=== PATIENT | female | born 1955 | race Caucasian/White ===

== ENCOUNTER 2024-08-30 15:50 | Observation (INO) | payer MEDICARE, OTHER, SELFPAY ==
[2024-08-30] VITALS (19 sets, daily range): BP systolic 81–162; BP diastolic 28–65; PULSE 50–58; RESP 16–20; TEMP 36.6–37.2; O2SAT 93–99; BMI 48.6; BMI 49.3
--- NOTE | 2024-08-30 16:00 | ECG_ITS ---
APPROVED REPORT Exam: Resting ECG HR:54 bpm ECG Measurements Heart Rate 54 AXES AR 222 P 31 QRSd 94 QRS 5 QT 444 T 5 QTc 431 Conclusion SINUS BRADYCARDIA WITH FIRST DEGREE AV BLOCK ABNORMAL ECG Electronically signed by : PHIL FUNES, 09/02/2024 07:41:26
--- NOTE | 2024-08-30 16:28 | XR_ITS ---
PROCEDURE INFORMATION: Exam: XR Chest Exam date and time: 08/30/2024 4:27 PM Age: 69 years old Clinical indication: Shortness of breath; Additional info: MARTINA jasso TECHNIQUE: Imaging protocol: Radiologic exam of the chest. Views: 1 view. COMPARISON: No relevant prior studies available. FINDINGS: Lungs: Questionable asymmetric opacities in the right lower lung field. Lungs are otherwise clear. Pleural spaces: Unremarkable. No pleural effusion. No pneumothorax. Heart/Mediastinum: Unremarkable. No cardiomegaly. Bones/joints: Unremarkable. IMPRESSION: Questionable right lower lung field opacities might reflect atelectasis or possibly developing infiltrate. Advise follow-up chest x-ray in 4-6 weeks to ensure resolution or stability or to assess for progression of this finding.
[2024-08-30 16:39] LABS: Basophils # 0.1 K/mm3 (0-0.2); Basophils % 0.5 % (0.1-2.0); Eosinophils # 0.1 K/mm3 (0.0-0.4); Eosinophils % 1.1 % (0.1-12.0); Hematocrit 39.1 % (37.0-47.0); Lymphocytes # 2.4 K/mm3 (0.7-4.5); Lymphocytes % 22.8 % (10-50); Mean Corpuscular HGB Conc 33.3 g/dL (31.8-35.4); Mean Corpuscular Hemoglobin 30.1 pg (27.0-31.2); Mean Corpuscular Volume 90.6 fl (81-99); Monocytes # 0.5 K/mm3 (0.1-1.0); Monocytes % 4.2 % (1.7-9.3); Neutrophils # 7.6 K/mm3 (1.8-7.8); Neutrophils % 71.4 % (37.0-80.0); Platelet Count 310 K/mm3 (142-424); Red Blood Count 4.32 M/mm3 (4.20-5.40); Red Cell Distribution Width 13.3 % (11.5-17.5); White Blood Count 10.7 K/mm3 (4.8-10.8)
[2024-08-30 16:42] LABS: Albumin Level 3.8 g/dl (3.5-5.0); Chloride 107 mmol/L (98-107)
[2024-08-30 16:43] LABS: Potassium 3.9 mmoL/L (3.5-5.1); Sodium 140 mmol/L (136-145)
[2024-08-30 16:45] LABS: Alanine Aminotransferase 17 U/L (12-78); Alkaline Phosphatase 63 U/L (38-126); Aspartate Amino Transferase 26 U/L (14-36); Bilirubin,Total 0.5 mg/dl (0.2-1.3); Blood Urea Nitrogen 21 mg/dl (7-17); Carbon Dioxide 25 mmol/L (22.0-30.0); Creatinine Clearance Estimated 26 mL/min (50-200); Estimated Glomerular Filt Rate 22 ml/min (>60); GFR (African American) 27 ML/MIN (>60)
[2024-08-30 16:46] LABS: Calcium 8.8 mg/dl (8.4-10.2); Glucose 148 mg/dl (74-100); Lipase 280 U/L (23-300); Magnesium 1.9 mg/dl (1.6-2.3)
[2024-08-30 16:47] LABS: INR 0.99 (0.9-1.1); Prothrombin Time 11.1 seconds (10.1-12.5)
[2024-08-30 16:54] LABS: Activated Partial Thrombo Time 24.1 seconds (22.8-30.6)
[2024-08-30 16:55] LABS: NT Pro Brain Natriuretic Pep. 325 pg/mL (0-125)
--- NOTE | 2024-08-30 16:59 | ED_ITS ---
Discharge Plan Disposition Chief Complaint: Weakness Clinical Impressions Clinical Impression: Sepsis Discharge ED Provider: Mahad Argueta General Adult HPI General Chief complaint: Weakness Stated complaint: dizziness Time Seen by Provider: 08/30/24 16:00 Mode of Arrival: EMS Source of Information: Patient and EMS Limitations: No Limitations Description of Symptoms (Recalled from ER Triage Doc. by RN): pt states she [facility] an [facility] and her BP was reading low then it read high. pt reports onher way home she became lightheaded and dizzy. EMS states when they arrived the pt was 78/50 so they gave a 500ml NS bolus in route. On arrival pt is 94/50. She denies pain or SOA. pt states she is still symptomatic and denies LOC. pt states she is feeling weak. pt has a hx of Afib and a watchman device and is currently on plavix. History of Present Illness HPI narrative: Please note that above description of symptoms, in this electronic medical record under categorization of recalled from ER triage doctor by RN are reflective of an initial nursing assessment, however, is not reflective of my full history and physical exam that was personally taken and clarified. Consequentially, this preceding description of symptoms, which may include the patient's categorized chief complaint in the EMR, do not reflect my personal clinical impression, and the ultimate description of history of present illness and patient stated complaints should be deferred to this section of the note. Unless stated otherwise or congruent with this section of the note, additional signs, symptoms, or incongruence should be interpreted as inaccurate with my clinical impression. Related Data Allergies Allergy/AdvReac Type Severity Reaction Status Date / Time No Known Allergies Allergy Verified 08/30/24 18:01 [facility] Disclaimer: The information contained in this section may have been updated after the patient was seen, as this information can be updated by other users. Social History Smoking Status: Never smoker alcohol intake: never current occupational status: retired Travel in the last 8 weeks: None ROS Obtained: Yes All systems reviewed & no additional complaints except as documented Physical Exam General General appearance: alert, in no apparent distress and obese Head Head exam: atraumatic and normocephalic Eye Eye exam: Present normal appearance, PERRL and EOMI Neck Neck exam: Present normal inspection, full ROM and trachea midline Respiratory Respiratory exam: Present normal lung sounds bilaterally; Absent respiratory distress, wheezes, stridor, accessory muscle use or prolonged expiratory phase Cardiovascular Cardiovascular exam: Present regular rate, normal rhythm and other (Pulses equal symmetric in upper and lower extremities) Abdominal Exam Abdominal exam: Present soft; Absent distention, tenderness or pulsatile mass Extremities Exam Extremities exam: Absent edema Neurological Exam Neurological exam: Present alert, oriented X3 and CN II-XII intact; Absent motor sensory deficit Skin Skin exam: Present warm and dry; Absent diaphoresis or erythema Medical Decision Making Medical Records Medical records reviewed: Yes I reviewed the patient's medical records. Screening: Per USPSTF and CDC recommendations, given the prevalence of disease in our region, it is our hospital?s policy to screen for HIV and viral Hepatitis for all patients aged 18 and over and those with ongoing risk factors. Frank Inquiry Pt receiving controlled substance: No Frank was queried for this patient: No Vital Signs: 08/30/24 16:11 08/30/24 16:31 08/30/24 17:07 Temperature 98.1 F Temperature Source Oral Pulse Rate 53 L 57 L Pulse Rate [Left] 57 L Respiratory Rate 16 16 Blood Pressure 89/52 L 92/49 L Blood Pressure [Right Arm] 94/50 L Blood Pressure Mean 59 Blood Pressure Mean [Right Arm] 64 Blood Pressure Source [Right Arm] Automatic Cuff Blood Pressure Position [Right Arm] Sitting 02 Sat by Pulse Oximetry 96 96 99 Oxygen Delivery Method Nasal Cannula Oxygen Flow Rate (LPM) 3 Lab Data Lab Results 08/30/24 15:50: WBC 10.7, RBC 4.32, Hgb 13.0, Hct 39.1, MCV 90.6, MCH 30.1, MCHC 33.3, RDW 13.3, Plt Count 310, MPV 8.0, Neut % (Auto) 71.4, Lymph % (Auto) 22.8, [place] % (Auto) 4.2, Eos % (Auto) 1.1, Baso % (Auto) 0.5, Neut # (Auto) 7.6, Lymph # (Auto) 2.4, [place] # (Auto) 0.5, Eos # (Auto) 0.1, Baso # (Auto) 0.1, PT 11.1, INR 0.99, APTT 24.1, Sodium 140, Potassium 3.9, Chloride 107, Carbon Dioxide 25, BUN 21 H, Creatinine 2.20 H, Glucose 148 H, Calcium 8.8, Magnesium 1.9, Total Bilirubin 0.5, AST 26, ALT 17, Alkaline Phosphatase 63, Troponin I < 0.01, N T-Pro-B Natriuret Pep 325 H, Total Protein 7.0, Albumin 3.8, Lipase 280 08/30/24 18:05: Lactate 1.3 08/30/24 18:06: VBG pH 7.29 L, VBG pCO2 50.8, VBG pO2 35.9, VBG HCO3 24.0, VBG Total CO2 25.6, VBG O2 Saturation 64.8, VBG Base Excess -2.5 L, VBG Lactic Acid 2.0 08/30/24 15:50 08/30/24 15:50 Orders (Tests/Meds): ED MEDICATIONS Generic Name Dose Route Start Last Admin Trade Name Tripq PRN Reason Stop Dose Admin Acetaminophen 650 mg 08/30/24 19:37 Acetaminophen 325mg Tab PO 09/29/24 19:36 Q4HP PRN Fever or Mild Pain (1-3) Sodium Chloride 1,000 mls @ 999 mls/hr 08/30/24 18:57 Sod Chlor 0.9% 1000ml Bag IV 08/30/24 19:57 .Q1H1M ONE Ondansetron HCl 4 mg 08/30/24 19:37 Ondansetron 4mg/2ml Vial IV 09/29/24 19:36 Q8HP PRN Nausea Sodium Chloride 10 ml 08/30/24 19:37 Sodium Chloride 0.9% 10ml Flush Syringe IV 09/29/24 19:36 NEEDED PRN Maintain IV Site Discontinued Medications Generic Name Dose Route Start Last Admin Trade Name Freq PRN Reason Stop Dose Admin Azithromycin 500 mg 08/30/24 17:34 08/30/24 18:10 Azithromycin 250mg Tablet PO 08/30/24 17:35 500 mg ONCE ONE Administration Ceftriaxone Sodium 2 gm/ 100 mls @ 200 mls/hr 08/30/24 17:34 08/30/24 18:10 Sodium Chloride IV 08/30/24 18:03 200 mls/hr ONCE ONE Administration ORDERS Category Date Time Status XR chest portable Stat Exams 08/30/24 16:28 Completed Complete Blood Count Auto Diff Stat Lab 08/30/24 15:50 Completed Comprehensive Metabolic Panel Stat Lab 08/30/24 15:50 Results Lactic Acid Stat Lab 08/30/24 18:05 Completed Lipase Stat Lab 08/30/24 15:50 Results Magnesium Stat Lab 08/30/24 15:50 Results NT Pro Brain Natriuretic Pep. Stat Lab 08/30/24 15:50 Results PT INR [Prothrombin Time INR] Stat Lab 08/30/24 15:50 Completed PTT [Activated Partial Thrombo Time] Stat Lab 08/30/24 15:50 Completed Troponin I Q3H Lab 08/30/24 19:30 Ordered Troponin I Q3H Lab 08/30/24 22:30 Ordered Troponin I Stat Lab 08/30/24 15:50 Results Urinalysis and Microscopic Stat Lab 08/30/24 16:29 Ordered Blood Culture Stat Micro 08/30/24 18:00 Received Venous Blood Gas Stat RT 08/30/24 18:06 Completed Medical Decision Narrative: 69-year-old female history of hypertension, hyperlipidemia, diabetes, CKD 3, A- fib status post Watchman procedure, CAD presenting with multiple complaints. [facility] While she was there, her blood pressure was low and she did not feel well. Was complaining to family friend that she was having intermittent chest pains, lightheadedness, dizziness, nausea as well as bilateral leg pain, which is chronic for her. No new symptoms that she has not had in the past. Not currently having any symptoms other than general malaise. No vomiting, fevers, chills, urinary symptoms. Patient states that she has not had any new changes to her medications. No other relevant history. History was obtained via conversation with patient and friend. On arrival, patient hemodynamically stable, alert, oriented x4, appropriate, GCS 15, moving all extremities spontaneously, pupils equal and reactive to light. Full physical exam performed and significant for morbidly obese appearing female no acute distress. Lungs are clear to auscultation anterior and posteriorly bilaterally. Cardiac exam without murmurs gallops or rubs. No lower extremity edema. Abdomen soft, nontender, nondistended. Differential includes pneumonia, UTI, sepsis, ACS, UT, beta- freda overdose, among others. Patient placed on continuous cardiac monitoring and continuous pulse ox with initial blood pressure 94/50, heart rate 57, saturation 96% on room air, placed on 3 L nasal cannula for comfort. Independent interpretation of EKG shows sinus bradycardia 54 bpm. Prescribed block. No ST or T wave changes concern for acute ischemia. PA 219, QRS 98, QTc 434. Normal axis. Patient was given azithromycin and ceftriaxone and a liter of fluids for symptomatic management and correction of underlying abnormalities. Workup independently interpreted and significant for nonactionable CBC or coags. Chemistry with what appears to be CKD versus KEREN on CKD with creatinine 2.2, BUN 21 with no baseline with which to compare. Lipase negative.. On independent interpretation of imaging, patient appears to have developing infiltrate in right lower lobe consistent with physical exam. See radiology read for full review of final results. Patient given 2 g ceftriaxone and 500 mg azithromycin. On reevaluation, patient resting comfortably. Tissue perfusion reassessment performed within 3 hours, patient mentating, following commands, good capillary refill and hemodynamically stable. Interactive discussion had with hospital medicine, to be admitted to clear blood cultures and rule out sepsis. Given patient presentation, workup, history, this most likely represents beta-blockade in the setting of pneumonia and infection, early sepsis without septic shock. [employer] Operator disclaimer Much of this encounter note is an electronic home demonstration agent spoken language to printed text. Electronic home demonstration agent of the spoken language may permit errors. Although I have reviewed the note, some errors may still exist. Critical Care Critical Care Time Critical Care Time: No
--- NOTE | 2024-08-30 17:31 | ECG_ITS ---
APPROVED REPORT Exam: Resting ECG HR:54 bpm ECG Measurements Heart Rate 54 AXES TX 219 P 29 QRSd 98 QRS -1 QT 448 T 22 QTc 434 Conclusion SINUS BRADYCARDIA WITH FIRST DEGREE AV BLOCK LOW QRS VOLTAGE IN PRECORDIAL LEADS [QRS DEFLECTION < 1.0 mV IN CHEST LEADS] ABNORMAL ECG Electronically signed by : PHIL FUNES, 09/02/2024 07:41:09
[2024-08-30 18:05] LABS: Troponin I < 0.01 ng/ml (0.00-0.034)
[2024-08-30] MEDS: CEFTRIAXONE SODIUM 2 GM in 0.9 % SODIUM CHLORIDE 100 ML IV (18:10)
[2024-08-30] MEDS: AZITHROMYCIN 250MG TABLET 500 MG PO (18:10)
[2024-08-30 18:11] LABS: VBG Base Excess -2.5 mmol/L (-2.4-2.3); VBG Oxygen Saturation 64.8 % (50-70); VBG PH 7.29 mmol/L (7.31-7.41); VBG PO2 35.9 mmol/L (28-40); VBG Total CO2 25.6 mmol/L (23-27)
[2024-08-30 18:13] LABS: VBG PCO2 50.8 mmol/L (35-51)
[2024-08-30 18:34] LABS: Lactic Acid 1.3 mmol/L (0.7-2.1)
--- NOTE | 2024-08-30 19:22 | PC.NURSE ---
ATTEMPTED TO CALL REPORT ON PT BUT THE NURSE IS BUSY. WILL GIVE NURSE TIME TO DEAL WITH CRITICAL PT AND TRY AGAIN SHORTLY
--- NOTE | 2024-08-30 19:34 | PC.NURSE ---
report called to Jacinto Chua RN
--- NOTE | 2024-08-30 19:49 | PC.NURSE ---
PATIENT ARRIVED TO FLOOR VIA STRETCHER FROM ED AT 19:46.
[2024-08-30] MEDS: 0.9 % SODIUM CHLORIDE 1000ML 1,000 ML 999 ML IV (20:29)
--- NOTE | 2024-08-30 20:45 | P.HP_ITS ---
History of Present Illness *Admission Date: 08/30/24 *Reason for visit:: Bradycardia, hypertension, sepsis *History of present illness: Ms. Tellez a [employer] . [facility] to the [facility]. Patient had actually been at the [facility] today had low blood pressure but then 1 was taken that was adequate she was treated and released. Patient noted for the last week she has been feeling weak and sometimes dizzy had gotten worse today, she was seen at the [facility] sent home became worse today her friend then called an ambulance. Patient arrived in the emergency room with systolic below 100 and also bradycardia. Patient noted she usually has hypertension. She came to the emergency room and has been treated., No improvement with the lower blood pressure lower heart rate. Have spoken with the ER physician I do agree that with the patient's sudden change with her weakness that we need to place her upstairs.. I will go ahead and admit her add a cardiology consult. Will look for source of sudden change in her vital signs. Patient is noted at this time to be in calm cooperative and showing no signs of distress. [facility] Disclaimer: The information contained in this section may have been updated after the patient was seen, as this information can be updated by other users. Medical History (Updated 08/31/24 @ 15:48 by Elkin Glover MD) Nocturnal hypoxia Pneumonia Presence of Watchman left atrial appendage closure device Paroxysmal atrial fibrillation Coronary-myocardial bridge Hyperlipidemia COPD (chronic obstructive pulmonary disease) Afib Neuropathy Diabetes HTN (hypertension) Social History (Updated 08/30/24 @ 22:01 by Kaye Chua RN) Smoking Status: Never smoker alcohol intake: never current occupational status: retired Travel in the last 8 weeks: None Review of Systems Constitutional Constitutional: Reports as per HPI and Reports headache(s) (She commonly has headaches also on chronic pain medicine) Eyes Eyes: Reports as per HPI ENT Ears, Nose, Mouth, and Throat: Reports as per HPI and Reports headache(s) (She commonly has headaches also on chronic pain medicine) *Cardiovascular Cardiovascular: Reports as per HPI and Reports dyspnea Comments: Has suddenly low heart rate she says this is unusual for her she denies any chest pain *Respiratory Respiratory: Reports as per HPI and Reports dyspnea Comments: Patient was in the ER said she felt short of breath nasal cannula was placed for comfort O2 saturations were at 95 *Gastrointestinal Gastrointestinal: Reports as per HPI Comments: Patient denies nausea vomiting diarrhea or any other gastrointestinal issues *Genitourinary Genitourinary: Reports as per HPI Comments: Patient denies any dysuria *Musculoskeletal Musculoskeletal: Reports as per HPI Comments: Patient noted that she has no injuries just feeling very weak throughout her whole body Integumentary/Breasts Skin/Breast: Reports as per HPI *Neurologic Neurologic: Reports as per HPI and Reports headache(s) (She commonly has headaches also on chronic pain medicine) Psychiatric Psychiatric: Reports as per HPI Endocrine Endocrine: Reports as per HPI Hematologic/Lymphatic Hematologic/Lymphatic: Reports as per HPI Allergic/Immunologic Allergic/Immunologic: Reports as per HPI Meds Home Medications and Allergies Home Medications ?Medication ?Instructions ?Recorded ?Confirmed ?Type acetaminophen 325 mg tablet 325 - 650 mg PO Q6HP PRN pain 08/30/24 08/31/24 History (mild 1-3) amlodipine 10 mg tablet 10 mg PO DAILY 08/30/24 08/31/24 History aspirin 81 mg tablet,delayed 81 mg PO DAILY 08/30/24 08/30/24 History release diclofenac sodium 3 % topical gel 4 g topical BID 08/30/24 08/31/24 History docusate sodium 100 mg capsule 100 mg PO BID 08/30/24 08/31/24 History empagliflozin 25 mg tablet 12.5 mg PO DAILY 08/30/24 08/31/24 History furosemide 20 mg tablet 20 mg PO DAILYP PRN Edema 08/30/24 08/31/24 History insulin glargine 100 unit/mL (3 35 unit SQ HS 08/30/24 08/31/24 History mL) subcutaneous pen lisinopril 20 mg tablet 20 mg PO DAILY 08/30/24 08/31/24 History metformin 500 mg tablet 500 mg PO BID 08/30/24 08/31/24 History metoprolol succinate 25 mg 25 mg PO DAILY 08/30/24 08/30/24 History tablet,extended release 24 hr naloxone 4 mg/actuation nasal spray 4 mg intranasal Q3MINP PRN overdose 08/30/24 08/31/24 History oxycodone-acetaminophen 5 mg-325 2 tab PO Q6HP PRN Pain (Moderate 08/30/24 08/31/24 History mg tablet 4-6) pantoprazole 40 mg tablet,delayed 40 mg PO DAILY 08/30/24 08/31/24 History release semaglutide 1 mg/dose (4 mg/3 mL) 2.4 mg SQ WEEKLY 08/30/24 08/30/24 History subcutaneous pen injector tizanidine 4 mg tablet 4 mg PO TID 08/30/24 08/31/24 History albuterol sulfate 90 mcg/actuation 2 puff inhalation QIDP PRN 08/31/24 08/31/24 History aerosol inhaler Shortness Of Breath Or Wheezing atorvastatin 40 mg tablet 40 mg PO DAILY 08/31/24 08/31/24 History bupropion HCl 150 mg 24 hr tablet, 450 mg PO AM 08/31/24 08/31/24 History extended release cetirizine 10 mg tablet 10 mg PO DAILY 08/31/24 08/31/24 History cholecalciferol (vitamin D3) 25 25 mcg PO DAILY 08/31/24 08/31/24 History mcg (1,000 unit) capsule (Vitamin D3) ferrous gluconate 324 mg (37.5 mg 324 mg PO Q48H 08/31/24 08/31/24 History iron) tablet fluocinonide 0.05 % topical 1 applic topical BID 08/31/24 08/31/24 History solution fluticasone propionate 50 1 spray intranasal DAILY 08/31/24 08/31/24 History mcg/actuation nasal spray,suspension hydroxyzine HCl 25 mg tablet 25 - 50 mg PO DAILYP PRN Anxiety 08/31/24 08/31/24 History isosorbide mononitrate 30 mg 45 mg PO DAILY 08/31/24 08/31/24 History tablet,extended release 24 hr levothyroxine 37.5 mcg capsule 37.5 mcg PO DAILY 08/31/24 08/31/24 History lidocaine 5 % topical patch 1 patch topical DAILYP PRN pain 08/31/24 08/31/24 History (mild 1-3) mirtazapine 15 mg tablet 15 mg PO HS 08/31/24 08/31/24 History polyethylene glycol 3350 17 17 g PO DAILYP PRN Constipation 08/31/24 08/31/24 History gram/dose oral powder potassium chloride 20 mEq 20 meq PO BID 08/31/24 08/31/24 History tablet,extended release(part/cryst) pregabalin 25 mg capsule 25 mg PO BID 08/31/24 08/31/24 History venlafaxine 150 mg 300 mg PO DAILY 08/31/24 08/31/24 History capsule,extended release 24 hr New Prescriptions to Start Prescriptions: Allergies Allergy/AdvReac Type Severity Reaction Status Date / Time No Known Allergies Allergy Verified 08/30/24 18:01 Exam Data for Last 24 hours Vital signs and Labs for Last 24 Hours: Temp Pulse Resp BP Pulse Ox O2 Del Method O2 Flow Rate 97.8 F 50 L 20 92/49 L 98 Nasal Cannula 4 08/30/24 20:00 08/30/24 20:00 08/30/24 20:00 08/30/24 20:00 08/30/24 20:00 08/30/24 20:00 08/30/24 20:00 Laboratory Results - last 24 hr 08/30/24 15:50: WBC 10.7, RBC 4.32, Hgb 13.0, Hct 39.1, MCV 90.6, MCH 30.1, MCHC 33.3, RDW 13.3, Plt Count 310, MPV 8.0, Neut % (Auto) 71.4, Lymph % (Auto) 22.8, Garland % (Auto) 4.2, Eos % (Auto) 1.1, Baso % (Auto) 0.5, Neut # (Auto) 7.6, Lymph # (Auto) 2.4, Garland # (Auto) 0.5, Eos # (Auto) 0.1, Baso # (Auto) 0.1, PT 11.1, INR 0.99, APTT 24.1, Sodium 140, Potassium 3.9, Chloride 107, Carbon Dioxide 25, BUN 21 H, Creatinine 2.20 H, Estimated Creat Clear 26, Estimated GFR 22 L, Est GFR ( Amer) 27 L, Glucose 148 H, Calcium 8.8, Magnesium 1.9, Total Michael irubin 0.5, AST 26, ALT 17, Alkaline Phosphatase 63, Troponin I < 0.01, NT-Pro-B Natriuret Pep 325 H, Total Protein 7.0, Albumin 3.8, Lipase 280 08/30/24 18:05: Lactate 1.3 08/30/24 18:06: VBG pH 7.29 L, VBG pCO2 50.8, VBG pO2 35.9, VBG HCO3 24.0, VBG Total CO2 25.6, VBG O2 Saturation 64.8, VBG Base Excess -2.5 L, VBG Lactic Acid 2.0 I & O for Last 24 hours: Intake & Output 08/28/24 08/29/24 08/30/24 08/31/24 05:59 05:59 05:59 05:59 Weight 332 lb 14.368 oz Radiology Reports for the Last 24 Hours: The right lower lobe shows possible infiltrate Constitutional Constitutional: mild distress, morbidly obese and cooperative Comments: Patient is very friendly she talks with the ease. She knows where she is shows no sign of distress or any type of confusion *Routine HEENT Exam Head: Present normocephalic and atraumatic Eye: Present EOMI and PERRL ENT: Present mucous membranes moist *Routine Neck Exam Neck: Present supple and full ROM Comments: Lamination of the neck is normal no enlarged thyroid Routine Chest/Breast/Axilla Exam Comments: There was no tenderness to the chest wall back or anterior *Routine Respiratory Exam Respiratory: Present CTA bilaterally, normal respiratory effort, able to speak in complete sentences and symmetric chest movement Comments: Examination of the lungs lady is quite large but can hear good airflow through all lung wynne., *Routine Cardiovascular Exam Cardiovascular: Present RRR, Normal S1, Normal S2 and bradycardia Comments: Was bradycardia sometimes in the 40s but mostly in the 50s sinus rhythm was no ectopy on the monitor while I was watching *Routine Abdominal Exam Abdominal: Present soft and obese Comments: Nontender abdomen *Routine Rectal Exam Rectal:: deferred *Routine Genitalia Exam Genitalia:: deferred *Routine Extremities Exam Extremities: Present full ROM, pulses intact and normal capillary refill Routine Back/Spine/Pelvis Exam Back/Spine: Present full ROM Comments: Patient has chronic pain but she denies any acute pain, exam was negative for any injury *Routine Skin Exam Skin: Present intact, dry, warm and normal turgor *Routine Neurological Exam Neurological: Present alert, oriented X3, CN II-XII intact, normal tone and normal speech Routine Psychiatric Exam Psychiatric: Present normal affect, normal thought process, good insight, good judgment and depressed Comments: No signs of any acute psychiatric problems H&P: Result Impressions 1. Bradycardia hypotension related possibly to sepsis and dehydration, noting mild possible UTI and right lower lobe infiltrate 2. Diabetes mellitus 3. COPD never smoked but was around lots of smokers so secondhand 4. Atrial fibrillation with coronary artery disease 5. Acute kidney injury 5 specific gravity of urine some acidosis question dehydration Imaging and Cardiology Chest x-ray: Status: image reviewed by me Additional comments: Mild right lower lobe infiltrate Assessment and Plan *Assessment and plan (1) Pneumonia: Status: Acute Category: Medical Code(s): J18.9 - Pneumonia, unspecified organism (2) Sepsis: Status: Acute Category: Medical Code(s): A41.9 - Sepsis, unspecified organism (3) KEREN (acute kidney injury): Status: Acute Category: Medical Code(s): N17.9 - Acute kidney failure, unspecified (4) Bradycardia: Status: Acute Category: Medical Code(s): R00.1 - Bradycardia, unspecified (5) Elevated serum creatinine: Status: Acute Category: Medical Code(s): R79.89 - Other specified abnormal findings of blood chemistry (6) Hypotension: Status: Acute Category: Medical Code(s): I95.9 - Hypotension, unspecified (7) Diabetes: Status: Acute Category: Medical Code(s): E11.9 - Type 2 diabetes mellitus without complications (8) COPD (chronic obstructive pulmonary disease): Status: Acute Category: Medical Code(s): J44.9 - Chronic obstructive pulmonary disease, unspecified (9) Dehydration: Status: Acute Category: Medical Code(s): E86.0 - Dehydration Plan Ms. Tellez is a 69-year-old female who presented with complaint of low blood pressure, low heart rate. Found to be hypotensive with bradycardia. Case discussed with ER physician, request admission for further management of pneumonia and hypotension. Medicine agreed to admit. Cardiology and pulmonology consulted to assist with care. Problems addressed as follows: Pneumonia New oxygen requirement COPD Suspected UTI -Chest x-ray reviewed showing right lower lobe infiltrate. Patient has afebrile with normal white count of 10.7. Continue antibiotics with ceftriaxone 1 g daily and azithromycin 500 mg daily for 5 days. -Wean oxygen as tolerated, goal sats greater 90%. - Pulmonology consulted to see patient in the morning. -Cultures pending; Repeat CBC, CMP, magnesium ordered for the morning -Urine culture pending, continue antibiotics as above awaiting speciation and sensitivity KEREN on CKD 3 -BUN 21, creatinine 2.2, caution with nephrotoxins. Repeat labs ordered for the morning. Gentle hydration overnight Bradycardia Myocardial bridge -Cardiology consulted to evaluate patient in the morning. Echo ordered. Will hold home blood pressure and rate controlling medications including lisinopril, Imdur, metoprolol. Reevaluate resumption in the morning. -Continue Jardiance 10 mg daily, Plavix 75 mg daily, aspirin 81 mg daily. Depression: Continue Zoloft 100 mg daily for mood. Diabetes: A1c pending. continue metformin 500 mg twice daily for diabetes; continue insulin sliding scale as needed ACHS with fingersticks. Continue home glargine 35 units nightly Hypothyroid: Continue levothyroxine 75 mcg daily for hypothyroid Full code Lovenox 40mg subcu twice daily Diabetic diet Rounded on patient after nurse practitioner. Personally examined and interviewed patient. Agree with exam findings and care plan as documented.
[2024-08-30] MEDS: CEFTRIAXONE 1 GM 1 GM in 0.9 % SODIUM CHLORIDE 50 ML IV (21:10)
[2024-08-30 21:14] LABS: Troponin I < 0.01 ng/ml (0.00-0.034)
[2024-08-30 21:24] LABS: Albumin/Globulin Ratio 1.2 (1.1-1.8); Anion Gap 11.9 mEq/L (5-15); Globulin 3.2 g/dL (1.3-3.2)
[2024-08-30] MEDS: GLUCAGON 1 MG/ML VIAL 3 MG IV (21:36)
[2024-08-30] MEDS: OXYCODONE 5MG W/APAP 325MG TABLET 1 EACH PO (22:13)
[2024-08-30] MEDS: NOREPINEPHRINE BITARTRATE 8 MG in 0.9 % SODIUM CHLORIDE 250 ML 7.74 MG IV (22:58)
[2024-08-30 23:19] LABS: Microscopic, Urine URINE MICROSCOPIC (MICROSCOPIC)
[2024-08-30 23:24] LABS: Appearance,Urine CLEAR (Clear); Bilirubin,Urine Negative (Negative); Blood, Urine Negative (Negative); Color,Urine YELLOW (Yellow); Glucose,Urine (UA) 3+ (Negative); Ketones,Urine TRACE (Negative); Leukocyte Esterase,Urine TRACE (Negative); Nitrate,Urine Negative (Negative); PH,Urine 5.5 (5.0-8.5); Protein,Urine TRACE (Negative); Specific Gravity, Urine >= 1.030 (1.005-1.030); Urobilinogen,Urine 0.2 EU/dl (0.2)
[2024-08-30 23:36] LABS: Bacteria,Urine 3+ /lpf; RBC,Urine Occasional #/hpf (0-3); Squamous Epithelial Cell,Urine 20-50 #/hpf (0-5); WBC,Urine 20-50 #/hpf (0-3)
[2024-08-31] VITALS (19 sets, daily range): BP systolic 97–128; BP diastolic 32–60; PULSE 50–62; RESP 13–21; TEMP 36.4–36.9; O2SAT 90–99; BMI 49.3
--- NOTE | 2024-08-31 | PC.NURSE ---
Addendum entered by Kaye Chua RN 08/31/24 01:55: patient placed back on 2L NC per Hospitalist, sats remained >90. Original Note: patient weaned to RA.
[2024-08-31 00:07] LABS: Troponin I < 0.01 ng/ml (0.00-0.034)
[2024-08-31 05:31] LABS: POC Glucose,Bedside 108 (70-110)
[2024-08-31 06:07] LABS: POC Glucose,Bedside 114 (70-110)
[2024-08-31] MEDS: IPRATROPIUM/ALBUTEROL 3 ML NEB IH ×2 (06:27→11:23)
[2024-08-31 06:44] LABS: Basophils % 0.4 % (0.1-2.0); Eosinophils # 0.3 K/mm3 (0.0-0.4); Eosinophils % 2.7 % (0.1-12.0); Hematocrit 36.9 % (37.0-47.0); Hemoglobin 12.4 g/dL (12.2-16.2); Lymphocytes # 2.6 K/mm3 (0.7-4.5); Lymphocytes % 24.3 % (10-50); Mean Corpuscular HGB Conc 33.6 g/dL (31.8-35.4); Mean Corpuscular Hemoglobin 30.5 pg (27.0-31.2); Mean Corpuscular Volume 90.6 fl (81-99); Mean Platelet Volume 7.6 fl (7.4-10.4); Monocytes # 0.4 K/mm3 (0.1-1.0); Monocytes % 3.7 % (1.7-9.3); Neutrophils # 7.4 K/mm3 (1.8-7.8); Neutrophils % 68.9 % (37.0-80.0); Platelet Count 257 K/mm3 (142-424); Red Blood Count 4.07 M/mm3 (4.20-5.40); Red Cell Distribution Width 13.3 % (11.5-17.5); White Blood Count 10.7 K/mm3 (4.8-10.8)
[2024-08-31 06:49] LABS: Alanine Aminotransferase 14 U/L (12-78); Albumin Level 3.3 g/dl (3.5-5.0); Albumin/Globulin Ratio 1.1 (1.1-1.8); Alkaline Phosphatase 68 U/L (38-126); Anion Gap 11.5 mEq/L (5-15); Aspartate Amino Transferase 24 U/L (14-36); Bilirubin,Total 0.6 mg/dl (0.2-1.3); Blood Urea Nitrogen 21 mg/dl (7-17); Calcium 8.5 mg/dl (8.4-10.2); Carbon Dioxide 23 mmol/L (22.0-30.0); Chloride 109 mmol/L (98-107); Creatinine Clearance Estimated 39 mL/min (50-200); Estimated Glomerular Filt Rate 38 ml/min (>60); GFR (African American) 45 ML/MIN (>60); Glucose 90 mg/dl (74-100); Magnesium 1.8 mg/dl (1.6-2.3); Potassium 3.5 mmoL/L (3.5-5.1); Sodium 140 mmol/L (136-145); Total Protein,Serum 6.3 g/dl (6.3-8.2)
[2024-08-31 07:16] LABS: Thyroid Stimulating Hormone 1.53 uIU/mL (0.465-4.68)
--- NOTE | 2024-08-31 07:37 | CA_ITS ---
APPROVED REPORT EXAM: Comprehensive 2D, Doppler, and color-flow Echocardiogram Nurse Practitioner Adult: Dinae Emmaneul CRT Ht: 5 ft 9 in Wt: 329lbs BSA: 2.55 BP: 92/49 mmHg Indications: bradycardia, afib, watchman device, on plavix, cardioverted previous M-Mode Dimensions RVDd 3.48 cm (0.9-2.6) LA Diam 4.19 cm (1.9-4.0) LVDd 5.43 cm (3.5-5.7) LVDs 3.35 cm (3.5-5.7) IVSd 1.47 cm (0.6-1.1) PWd 1.12 cm (0.6-1.1) EF (Teich) 68.00% FS 38.30% EDV (Teich) 143.10 mL TAPSE 3.65 (<1.7) ESV (Teich) 45.80 mL LV Diastology E Decel Time 150 (160-240 msec) E/A Ratio 1.24 MED A' 12.30 cm/s LAT A' 7.80 cm/s Aortic Valve KARY Index 1.23 cm2/m2 AoV Peak Rao. 199.0 (50-130 cm/s) AO Peak GR. 15.90 mmHg AO Mean GR. 8.60 (<5 mmHg) AO VTI 42.3 (18-25 cm) KARY (VTI) 3.20 (2.5-4.5 cm2) Mitral Valve MV E Max Rao. 99.0 (40-130 cm/s) MV A Velocity 80.0 (40-130 cm/s) E/A Ratio 1.24 MV PHT 44.0 ms Pulmonary Valve PV Peak Velocity 130.0 (50-150 cm/s) Tricuspid Valve TR P. Velocity 242.00 cm/s RAP Estimate 10.00 mmHg RVSP 33.40 mmHg Left Ventricle The left ventricle is normal size. The left ventricular systolic function is normal. The left ventricular ejection fraction is within the normal range. There is increased LV wall thickness. There is normal LV segmental wall motion. The left ventricular diastolic function is normal. LVEF is 60%. Right Ventricle The right ventricle is normal size. The right ventricular systolic function is normal. Atria The left atrium is mildly dilated. The right atrium size is normal. There is no Doppler evidence of interatrial shunt. Aortic Valve The aortic valve is mildly thickened. There is no hemodynamically significant aortic stenosis. Trace aortic regurgitation. Mitral Valve The mitral valve leaflets are mildly thickened. No evidence of mitral valve stenosis. Mild mitral regurgitation. Tricuspid Valve Tricuspid valve is grossly normal in structure and function. Trace tricuspid regurgitation. RVSP is 20-25 mmHg. Pulmonic Valve The pulmonary valve is normal in structure. Trace pulmonic regurgitation. Great Vessels The aortic root is normal in size. The ascending aorta is normal in size. IVC is normal in size and collapses >50% with inspiration. Pericardium There is no pericardial effusion. Other Information Study Quality: Fair Conclusion Normal biventricular systolic function. Mild LA dilation. Mild MR. Electronically signed by : Tali Tello MD 08/31/2024 12:53:11
[2024-08-31] MEDS: POTASSIUM CHLORIDE 20MEQ TAB 20 MEQ PO ×2 (08:11→21:03)
[2024-08-31] MEDS: ASPIRIN EC 81MG TABLET 81 MG PO (08:11)
[2024-08-31] MEDS: METFORMIN 500MG TABLET 500 MG PO ×2 (08:11→16:30)
[2024-08-31] MEDS: CLOPIDOGREL 75MG TAB 75 MG PO (08:11)
[2024-08-31] MEDS: SERTRALINE 100MG TABLET 100 MG PO (08:12)
[2024-08-31] MEDS: EMPAGLIFLOZIN 10MG TABLET 25 MG PO (08:12)
[2024-08-31] MEDS: AZITHROMYCIN 250MG TABLET 500 MG PO (08:13)
[2024-08-31] MEDS: OXYCODONE 5MG W/APAP 325MG TABLET 2 EACH PO ×3 (08:17→21:02)
[2024-08-31] MEDS: LEVOTHYROXINE 25MCG (0.025MG) TAB 75 MCG PO (08:17)
[2024-08-31 08:59] LABS: Hemoglobin A1C 5.6 % (4.0-6.0)
--- NOTE | 2024-08-31 09:56 | HMH.PHAINT1 ---
Pharmacy Intervention Comments: HOME MEDICATIONS VERIFIED VIA PATIENT INTERVIEW AND [facility]
--- NOTE | 2024-08-31 10:53 | P.CONS_ITS ---
History of Present Illness History of present illness: Ms. Tellez is a 69-year-old female never smoker, significant secondhand smoke exposure carries a diagnosis of asthma COPD overlap syndrome, prolonged hospital admission around September 2023 in [place], diagnosed with pneumonia, bleeding at the same time patient was also diagnosed with left-sided pulmonary embolism has been on anticoagulation since then presented to the clinic of worsening respiratory distress and pulmonary was called for further evaluation and management. She was only using albuterol on as-needed basis at baseline. [facility] Disclaimer: The information contained in this section may have been updated after the patient was seen, as this information can be updated by other users. Medical History (Updated 08/31/24 @ 12:27 by Chata Ramires MD) Nocturnal hypoxia Pneumonia Presence of Watchman left atrial appendage closure device Paroxysmal atrial fibrillation Coronary-myocardial bridge Hyperlipidemia COPD (chronic obstructive pulmonary disease) Afib Neuropathy Diabetes HTN (hypertension) Social History (Updated 08/30/24 @ 22:01 by Kaye Chua RN) Smoking Status: Never smoker alcohol intake: never current occupational status: retired Travel in the last 8 weeks: None Review of Systems Constitutional Constitutional: Reports fatigue, Reports headache(s) (She commonly has headaches also on chronic pain medicine) and Reports snoring Eyes Eyes: Denies eye discharge, Denies dry eyes, Denies irritation and Denies itchy eyes ENT Ears, Nose, Mouth, and Throat: Reports headache(s) (She commonly has headaches also on chronic pain medicine), Denies lip swelling and Denies throat swelling *Cardiovascular Cardiovascular: Reports dyspnea and Reports dyspnea on exertion *Respiratory Respiratory: Denies change in phlegm color, Reports chest congestion, Reports cough, Reports dyspnea, Reports dyspnea on exertion, Denies excessive phlegm production, Reports snoring and Reports wheezing *Gastrointestinal Gastrointestinal: Denies abdominal pain, Denies belching and Denies cramping *Musculoskeletal Musculoskeletal: Reports back pain, Reports myalgias and Reports other (No small joint swelling or Pain) *Neurologic Neurologic: Reports as per HPI and Reports headache(s) (She commonly has headaches also on chronic pain medicine) Psychiatric Psychiatric: Denies homicidal ideation and Denies suicidal ideation Endocrine Endocrine: Reports fatigue and Denies heat intolerance Hematologic/Lymphatic Hematologic/Lymphatic: Denies easy bleeding and Denies lymphadenopathy Allergic/Immunologic Allergic/Immunologic: Denies itchy eyes, Denies lip swelling, Denies throat swelling and Reports wheezing Pulmonology Exam Inpatient Vital signs and Labs for Last 24 Hours: Temp Pulse Resp BP Pulse Ox O2 Del Method O2 Flow Rate 97.6 F 56 L 18 109/51 L 93 L Nasal Cannula 2 08/31/24 08:00 08/31/24 10:00 08/31/24 10:00 08/31/24 10:00 08/31/24 10:00 08/31/24 10:00 08/31/24 10:00 Laboratory Results - last 24 hr 08/30/24 15:50: WBC 10.7, RBC 4.32, Hgb 13.0, Hct 39.1, MCV 90.6, MCH 30.1, MCHC 33.3, RDW 13.3, Plt Count 310, MPV 8.0, Neut % (Auto) 71.4, Lymph % (Auto) 22.8, Gilchrist % (Auto) 4.2, Eos % (Auto) 1.1, Baso % (Auto) 0.5, Neut # (Auto) 7.6, Lymph # (Auto) 2.4, Gilchrist # (Auto) 0.5, Eos # (Auto) 0.1, Baso # (Auto) 0.1, PT 11.1, INR 0.99, APTT 24.1, Sodium 140, Potassium 3.9, Chloride 107, Carbon Dioxide 25, Anion Gap 11.9, BUN 21 H, Creatinine 2.20 H, Estimated Creat Clear 26, Estimated GFR 22 L, Est GFR ( Amer) 27 L, Glucose 148 H, Calcium 8.8, Magnesium 1.9, Total Bilirubin 0.5, AST 26, ALT 17, Alkaline Phosphatase 63, Troponin I < 0.01, NT-Pro-B Natriuret Pep 325 H, Total Protein 7.0, Albumin 3.8, Globulin 3.2, Albumin/Globulin Ratio 1.2, Lipase 280 08/30/24 18:05: Lactate 1.3 08/30/24 18:06: VBG pH 7.29 L, VBG pCO2 50.8, VBG pO2 35.9, VBG HCO3 24.0, VBG Total CO2 25.6, VBG O2 Saturation 64.8, VBG Base Excess -2.5 L, VBG Lactic Acid 2.0 08/30/24 20:04: Troponin I < 0.01 08/30/24 21:37: POC Glucose 114 H 08/30/24 22:07: Urine Color Yellow, Urine Appearance Clear, Urine pH 5.5, Ur Specific Harrington >= 1.030, Urine Protein Trace, Urine Glucose (UA) 3+, Urine Ketones Trace, Urine Blood Negative, Urine Nitrate Negative, Urine Bilirubin Negative, Urine Urobilinogen 0.2, Ur Leukocyte Esterase Trace, Urine RBC Occasional, Urine WBC 20-50, Ur Squamous Epith Cells 20-50, Urine Bacteria 3+ 08/30/24 23:30: Troponin I < 0.01 08/31/24 05:03: POC Glucose 108 08/31/24 05:30: WBC 10.7, RBC 4.07 L, Hgb 12.4, Hct 36.9 L, MCV 90.6, MCH 30.5, MCHC 33.6, RDW 13.3, Plt Count 257, MPV 7.6, Neut % (Auto) 68.9, Lymph % (Auto) 24.3, Gilchrist % (Auto) 3.7, Eos % (Auto) 2.7, Baso % (Auto) 0.4, Neut # (Auto) 7.4, Lymph # (Auto) 2.6, Gilchrist # (Auto) 0.4, Eos # (Auto) 0.3, Baso # (Auto) 0.0, Sodium 140, Potassium 3.5, Chloride 109 H, Carbon Dioxide 23, Anion Gap 11.5, B UN 21 H, Creatinine 1.40 H D, Estimated Creat Clear 39, Estimated GFR 38 L, Est GFR ( Amer) 45 L D, Glucose 90 D, Hemoglobin A1c 5.6, Calcium 8.5, Magnesium 1.8, Total Bilirubin 0.6, AST 24, ALT 14, Alkaline Phosphatase 68, Total Protein 6.3, Albumin 3.3 L D, Globulin 3.0, Albumin/Globulin Ratio 1.1, TSH 1.53 I & O for Labs for Last 24 Hours: Intake & Output 08/28/24 08/29/24 08/30/24 08/31/24 23:59 23:59 23:59 23:59 Intake Total 1294.934 / 1294.934 370 / 370 Output Total 200 / 200 200 / 200 Balance 1094.934 / 1094.934 170 / 170 Weight 332 lb 14.368 oz 332 lb 14.368 oz Constitutional: Present moderate distress Head: Present normocephalic and atraumatic ENT: Present normal exam, normal oropharynx and mucous membranes moist Neck: Present normal inspection and full ROM Respiratory: Present able to speak in complete sentences; Absent prolonged expiratory phase, respiratory distress, wheezes or diminished air movement Cardiac: Present S1/S2, Tachycardia and radial pulses present GI: Present soft and distention; Absent tenderness or guarding Rectal (female): Present deferred (female): Present deferred Skin: Present intact; Absent cyanosis or jaundice Neuro: Present alert, awake and oriented x 3 Extremities: Present normal inspection; Absent clubbing or cyanosis Psychiatric: Present normal affect and cooperative Meds Home Medications and Allergies Home Medications ?Medication ?Instructions ?Recorded ?Confirmed ?Type acetaminophen 325 mg tablet 325 - 650 mg PO Q6HP PRN pain 08/30/24 08/31/24 History (mild 1-3) amlodipine 10 mg tablet 10 mg PO DAILY 08/30/24 08/31/24 History aspirin 81 mg tablet,delayed 81 mg PO DAILY 08/30/24 08/30/24 History release diclofenac sodium 3 % topical gel 4 g topical BID 08/30/24 08/31/24 History docusate sodium 100 mg capsule 100 mg PO BID 08/30/24 08/31/24 History empagliflozin 25 mg tablet 12.5 mg PO DAILY 08/30/24 08/31/24 History furosemide 20 mg tablet 20 mg PO DAILYP PRN Edema 08/30/24 08/31/24 History insulin glargine 100 unit/mL (3 35 unit SQ HS 08/30/24 08/31/24 History mL) subcutaneous pen lisinopril 20 mg tablet 20 mg PO DAILY 08/30/24 08/31/24 History metformin 500 mg tablet 500 mg PO BID 08/30/24 08/31/24 History metoprolol succinate 25 mg 25 mg PO DAILY 08/30/24 08/30/24 History tablet,extended release 24 hr naloxone 4 mg/actuation nasal spray 4 mg intranasal Q3MINP PRN overdose 08/30/24 08/31/24 History oxycodone-acetaminophen 5 mg-325 2 tab PO Q6HP PRN Pain (Moderate 08/30/24 08/31/24 History mg tablet 4-6) pantoprazole 40 mg tablet,delayed 40 mg PO DAILY 08/30/24 08/31/24 History release semaglutide 1 mg/dose (4 mg/3 mL) 2.4 mg SQ WEEKLY 08/30/24 08/30/24 History subcutaneous pen injector tizanidine 4 mg tablet 4 mg PO TID 08/30/24 08/31/24 History albuterol sulfate 90 mcg/actuation 2 puff inhalation QIDP PRN 08/31/24 08/31/24 History aerosol inhaler Shortness Of Breath Or Wheezing atorvastatin 40 mg tablet 40 mg PO DAILY 08/31/24 08/31/24 History bupropion HCl 150 mg 24 hr tablet, 450 mg PO AM 08/31/24 08/31/24 History extended release cetirizine 10 mg tablet 10 mg PO DAILY 08/31/24 08/31/24 History cholecalciferol (vitamin D3) 25 25 mcg PO DAILY 08/31/24 08/31/24 History mcg (1,000 unit) capsule (Vitamin D3) ferrous gluconate 324 mg (37.5 mg 324 mg PO Q48H 08/31/24 08/31/24 History iron) tablet fluocinonide 0.05 % topical 1 applic topical BID 08/31/24 08/31/24 History solution fluticasone propionate 50 1 spray intranasal DAILY 08/31/24 08/31/24 History mcg/actuation nasal spray,suspension hydroxyzine HCl 25 mg tablet 25 - 50 mg PO DAILYP PRN Anxiety 08/31/24 08/31/24 History isosorbide mononitrate 30 mg 45 mg PO DAILY 08/31/24 08/31/24 History tablet,extended release 24 hr levothyroxine 37.5 mcg capsule 37.5 mcg PO DAILY 08/31/24 08/31/24 History lidocaine 5 % topical patch 1 patch topical DAILYP PRN pain 08/31/24 08/31/24 History (mild 1-3) mirtazapine 15 mg tablet 15 mg PO HS 08/31/24 08/31/24 History polyethylene glycol 3350 17 17 g PO DAILYP PRN Constipation 08/31/24 08/31/24 History gram/dose oral powder potassium chloride 20 mEq 20 meq PO BID 08/31/24 08/31/24 History tablet,extended release(part/cryst) pregabalin 25 mg capsule 25 mg PO BID 08/31/24 08/31/24 History venlafaxine 150 mg 300 mg PO DAILY 08/31/24 08/31/24 History capsule,extended release 24 hr New Prescriptions to Start Prescriptions: Allergies Allergy/AdvReac Type Severity Reaction Status Date / Time No Known Allergies Allergy Verified 08/30/24 18:01 Results Laboratory Findings 08/31/24 05:30 08/31/24 05:30 PT/INR, D-dimer PT 11.1 seconds (10.1-12.5) 08/30/24 15:50 INR 0.99 (0.9-1.1) 08/30/24 15:50 Abnormal lab findings: Abnormal Labs 08/30/24 08/30/24 08/30/24 15:50 18:06 21:37 RBC Hct VBG pH 7.29 L VBG Base Excess -2.5 L Chloride BUN 21 H Creatinine 2.20 H Estimated GFR 22 L Est GFR ( Amer) 27 L Glucose 148 H POC Glucose 114 H NT-Pro-B Natriuret Pep 325 H Albumin 08/31/24 05:30 RBC 4.07 L Hct 36.9 L VBG pH VBG Base Excess Chloride 109 H BUN 21 H Creatinine 1.40 H D Estimated GFR 38 L Est GFR ( Amer) 45 L D Glucose POC Glucose NT-Pro-B Natriuret Pep Albumin 3.3 L D Assessment and Plan *Assessment and plan (1) Pneumonia: Status: Acute Category: Medical Code(s): J18.9 - Pneumonia, unspecified organism (2) Nocturnal hypoxia: Status: Acute Category: Medical Code(s): G47.34 - Idiopathic sleep related nonobstructive alveolar hypoventilation Plan Ms. Tellez is a 69-year-old female never smoker, significant secondhand smoke exposure carries a diagnosis of asthma COPD overlap syndrome, prolonged hospital admission around September 2023 in [place], diagnosed with pneumonia, bleeding at the same time patient was also diagnosed with left-sided pulmonary embolism has been on anticoagulation since then presented to the clinic of worsening respiratory distress and pulmonary was called for further evaluation and management. She was only using albuterol on as-needed basis at baseline. Chest x-ray right lower lobe infiltrate. Vascular congestion. Afebrile. No evidence of leukocytosis. Hemodynamically unstable. On ceftriaxone and azithromycin. On 2 L saturating 96 to 98%. Weaned to room air. No significant wheezing noted on auscultation. Plan: Continue ceftriaxone azithromycin pending sputum culture results, antibiotics can be weaned to cefdinir upon discharge. Continue oxygen supplementation as needed to maintain O2 saturation goal of 90 to 95% during the daytime. Continue 2 L nasal oxygen supplementation nocturnally likely from her sleep apnea. DuoNebs 4 times daily as needed
[2024-08-31 11:16] LABS: POC Glucose,Bedside 106 (70-110)
--- NOTE | 2024-08-31 12:12 | P.CONCA_ITS ---
History of Present Illness History of Present Illness Consult date: 08/31/24 Requesting physician: Elkin Glover Consult reason: hypotension Chief complaint: Hypotension and bradycardia History of present illness: This is a 69-year-old white female who presented to the emergency department with hypotension and bradycardia. The patient states that [facility] yesterday when she was found to have low blood pressure. She states they rechecked her blood pressure and it was higher so they sent her home. She states that after she got home she continued to feel more weak and dizzy and just did not feel well. She states that she has been feeling like that intermittently for the last few weeks but yesterday it did get severe. She states that she was very tearful and she felt like she was hurting all over her body and just profoundly fatigued. She decided to come to the emergency department. The patient was found to be hypotensive and bradycardic in the emergency department and was referred for admission. All of her blood pressure medications have been put on hold this morning and her systolic blood pressure is around 105 this morning. She states that she is feeling a little bit better today. She states that she has had chest pain intermittently through the night last night. It was a sharp sensation in the left side of her chest. It did not radiate. No associated symptoms. The patient states that approximately a year ago she was diagnosed with a myocardial bridge while at the hospital in [facility]. She states that she has shortness of breath with exertion. This does improve with rest. She states that she is chronically edematous. She denies any fever, chills, nausea, vomiting, diarrhea, PND orthopnea. [facility] Disclaimer: The information contained in this section may have been updated after the patient was seen, as this information can be updated by other users. Medical History (Updated 08/31/24 @ 12:19 by Diane Thompson APRN) Presence of Watchman left atrial appendage closure device Paroxysmal atrial fibrillation Coronary-myocardial bridge Hyperlipidemia COPD (chronic obstructive pulmonary disease) Afib Neuropathy Diabetes HTN (hypertension) Social History (Updated 08/30/24 @ 22:01 by Kaye Chua RN) Smoking Status: Never smoker alcohol intake: never current occupational status: retired Travel in the last 8 weeks: None Review of Systems Review of Systems Review of systems:: pertinent systems reviewed and negative unless documented below Constitutional Constitutional: Reports system reviewed and no additional complaints, except as documented, Reports fatigue, Reports headache(s) (She commonly has headaches also on chronic pain medicine) and Reports lethargy Eyes Eyes: Reports system reviewed and no additional complaints, except as documented ENT Ears, Nose, Mouth, and Throat: Reports system reviewed and no additional complaints, except as documented and Reports headache(s) (She commonly has headaches also on chronic pain medicine) *Cardiovascular Cardiovascular: Reports system reviewed and no additional complaints, except as documented, Reports chest pain, Reports chest pain at rest, Reports chest pain with activity, Reports dyspnea, Reports dyspnea on exertion, Reports edema and Reports slow heart rate *Respiratory Respiratory: Reports system reviewed and no additional complaints, except as documented, Reports dyspnea and Reports dyspnea on exertion *Gastrointestinal Gastrointestinal: Reports system reviewed and no additional complaints, except as documented *Genitourinary Genitourinary: Reports system reviewed and no additional complaints, except as documented *Musculoskeletal Musculoskeletal: Reports system reviewed and no additional complaints, except as documented Integumentary/Breasts Skin/Breast: Reports system reviewed and no additional complaints, except as documented *Neurologic Neurologic: Reports system reviewed and no additional complaints, except as documented, Reports as per HPI and Reports headache(s) (She commonly has headaches also on chronic pain medicine) Psychiatric Psychiatric: Reports system reviewed and no additional complaints, except as documented Endocrine Endocrine: Reports system reviewed and no additional complaints, except as documented and Reports fatigue Hematologic/Lymphatic Hematologic/Lymphatic: Reports system reviewed and no additional complaints, except as documented Allergic/Immunologic Allergic/Immunologic: Reports system reviewed and no additional complaints, except as documented Exam Data for Last 24 hours Vital signs and Labs for Last 24 Hours: Temp Pulse Resp BP Pulse Ox O2 Del Method O2 Flow Rate 97.6 F 58 L 18 104/58 L 95 Nasal Cannula 2 08/31/24 08:00 08/31/24 11:24 08/31/24 11:00 08/31/24 11:00 08/31/24 11:24 08/31/24 11:24 08/31/24 11:24 Laboratory Results - last 24 hr 08/30/24 15:50: WBC 10.7, RBC 4.32, Hgb 13.0, Hct 39.1, MCV 90.6, MCH 30.1, MCHC 33.3, RDW 13.3, Plt Count 310, MPV 8.0, Neut % (Auto) 71.4, Lymph % (Auto) 22.8, Jones % (Auto) 4.2, Eos % (Auto) 1.1, Baso % (Auto) 0.5, Neut # (Auto) 7.6, Lymph # (Auto) 2.4, Jones # (Auto) 0.5, Eos # (Auto) 0.1, Baso # (Auto) 0.1, PT 11.1, INR 0.99, APTT 24.1, Sodium 140, Potassium 3.9, Chloride 107, Carbon Dioxide 25, Anion Gap 11.9, BUN 21 H, Creatinine 2.20 H, Estimated Creat Clear 26, Estimated GFR 22 L, Est GFR ( Amer) 27 L, Glucose 148 H, Calcium 8.8, Magnesium 1.9, Total Bilirubin 0.5, AST 26, ALT 17, Alkaline Phosphatase 63, Troponin I < 0.01, NT-Pro-B Natriuret Pep 325 H, Total Protein 7.0, Albumin 3.8, Globulin 3.2, Albumin/Globulin Ratio 1.2, Lipase 280 08/30/24 18:05: Lactate 1.3 08/30/24 18:06: VBG pH 7.29 L, VBG pCO2 50.8, VBG pO2 35.9, VBG HCO3 24.0, VBG Total CO2 25.6, VBG O2 Saturation 64.8, VBG Base Excess -2.5 L, VBG Lactic Acid 2.0 08/30/24 20:04: Troponin I < 0.01 08/30/24 21:37: POC Glucose 114 H 08/30/24 22:07: Urine Color Yellow, Urine Appearance Clear, Urine pH 5.5, Ur Specific [place] >= 1.030, Urine Protein Trace, Urine Glucose (UA) 3+, Urine Ketones Trace, Urine Blood Negative, Urine Nitrate Negative, Urine Bilirubin Negative, Urine Urobilinogen 0.2, Ur Leukocyte Esterase Trace, Urine RBC Occasional, Urine WBC 20-50, Ur Squamous Epith Cells 20-50, Urine Bacteria 3+ 08/30/24 23:30: Troponin I < 0.01 08/31/24 05:03: POC Glucose 108 08/31/24 05:30: WBC 10.7, RBC 4.07 L, Hgb 12.4, Hct 36.9 L, MCV 90.6, MCH 30.5, MCHC 33.6, RDW 13.3, Plt Count 257, MPV 7.6, Neut % (Auto) 68.9, Lymph % (Auto) 24.3, Jones % (Auto) 3.7, Eos % (Auto) 2.7, Baso % (Auto) 0.4, Neut # (Auto) 7.4, Lymph # (Auto) 2.6, Jones # (Auto) 0.4, Eos # (Auto) 0.3, Baso # (Auto) 0.0, Sodium 140, Potassium 3.5, Chloride 109 H, Carbon Dioxide 23, Anion Gap 11.5, BUN 21 H, Creatinine 1.40 H D, Estimated Creat Clear 39, Estimated GFR 38 L, Est GFR ( Amer) 45 L D, Glucose 90 D, Hemoglobin A1c 5.6, Calcium 8.5, Magnesium 1.8, Total Bilirubin 0.6, AST 24, ALT 14, Alkaline Phosphatase 68, Total Protein 6.3, Albumin 3.3 L D, Globulin 3.0, Albumin/Globulin Ratio 1.1, TSH 1.53 08/31/24 11:01: POC Glucose 106 I & O for Last 24 hours: Intake & Output 08/28/24 08/29/24 08/30/24 08/31/24 23:59 23:59 23:59 23:59 Intake Total 1294.934 / 1294.934 470 / 470 Output Total 200 / 200 200 / 200 Balance 1094.934 / 1094.934 270 / 270 Weight 332 lb 14.368 oz 332 lb 14.368 oz Constitutional Constitutional: no acute distress and morbidly obese *Routine HEENT Exam Head: Present normocephalic and atraumatic ENT: Present mucous membranes moist *Routine Neck Exam Neck: Present supple, full ROM and normal carotid upstroke; Absent JVD, carotid bruit or lymphadenopathy *Routine Respiratory Exam Respiratory: Present CTA bilaterally, normal respiratory effort, able to speak in complete sentences and symmetric chest movement *Routine Cardiovascular Exam Cardiovascular: Present RRR, Normal S1 and Normal S2; Absent murmur or gallop *Routine Abdominal Exam Abdominal: Present soft and normoactive bowel sounds; Absent tenderness, distended or organomegaly *Routine Extremities Exam Extremities: Present edema, full ROM, pulses intact and normal capillary refill; Absent cyanosis or clubbing *Routine Skin Exam Skin: Present intact and warm; Absent erythema *Routine Neurological Exam Neurological: Present alert, oriented X3 and CN II-XII intact; Absent sensory deficit or motor deficit Routine Psychiatric Exam Psychiatric: Present normal affect Meds Home Medications and Allergies Home Medications ?Medication ?Instructions ?Recorded ?Confirmed ?Type acetaminophen 325 mg tablet 325 - 650 mg PO Q6HP PRN pain 08/30/24 08/31/24 History (mild 1-3) amlodipine 10 mg tablet 10 mg PO DAILY 08/30/24 08/31/24 History aspirin 81 mg tablet,delayed 81 mg PO DAILY 08/30/24 08/30/24 History release diclofenac sodium 3 % topical gel 4 g topical BID 08/30/24 08/31/24 History docusate sodium 100 mg capsule 100 mg PO BID 08/30/24 08/31/24 History empagliflozin 25 mg tablet 12.5 mg PO DAILY 08/30/24 08/31/24 History furosemide 20 mg tablet 20 mg PO DAILYP PRN Edema 08/30/24 08/31/24 History insulin glargine 100 unit/mL (3 35 unit SQ HS 08/30/24 08/31/24 History mL) subcutaneous pen lisinopril 20 mg tablet 20 mg PO DAILY 08/30/24 08/31/24 History metformin 500 mg tablet 500 mg PO BID 08/30/24 08/31/24 History metoprolol succinate 25 mg 25 mg PO DAILY 08/30/24 08/30/24 History tablet,extended release 24 hr naloxone 4 mg/actuation nasal spray 4 mg intranasal Q3MINP PRN overdose 08/30/24 08/31/24 History oxycodone-acetaminophen 5 mg-325 2 tab PO Q6HP PRN Pain (Moderate 08/30/24 08/31/24 History mg tablet 4-6) pantoprazole 40 mg tablet,delayed 40 mg PO DAILY 08/30/24 08/31/24 History release semaglutide 1 mg/dose (4 mg/3 mL) 2.4 mg SQ WEEKLY 08/30/24 08/30/24 History subcutaneous pen injector tizanidine 4 mg tablet 4 mg PO TID 08/30/24 08/31/24 History albuterol sulfate 90 mcg/actuation 2 puff inhalation QIDP PRN 08/31/24 08/31/24 History aerosol inhaler Shortness Of Breath Or Wheezing atorvastatin 40 mg tablet 40 mg PO DAILY 08/31/24 08/31/24 History bupropion HCl 150 mg 24 hr tablet, 450 mg PO AM 08/31/24 08/31/24 History extended release cetirizine 10 mg tablet 10 mg PO DAILY 08/31/24 08/31/24 History cholecalciferol (vitamin D3) 25 25 mcg PO DAILY 08/31/24 08/31/24 History mcg (1,000 unit) capsule (Vitamin D3) ferrous gluconate 324 mg (37.5 mg 324 mg PO Q48H 08/31/24 08/31/24 History iron) tablet fluocinonide 0.05 % topical 1 applic topical BID 08/31/24 08/31/24 History solution fluticasone propionate 50 1 spray intranasal DAILY 08/31/24 08/31/24 History mcg/actuation nasal spray,suspension hydroxyzine HCl 25 mg tablet 25 - 50 mg PO DAILYP PRN Anxiety 08/31/24 08/31/24 History isosorbide mononitrate 30 mg 45 mg PO DAILY 08/31/24 08/31/24 History tablet,extended release 24 hr levothyroxine 37.5 mcg capsule 37.5 mcg PO DAILY 08/31/24 08/31/24 History lidocaine 5 % topical patch 1 patch topical DAILYP PRN pain 08/31/24 08/31/24 History (mild 1-3) mirtazapine 15 mg tablet 15 mg PO HS 08/31/24 08/31/24 History polyethylene glycol 3350 17 17 g PO DAILYP PRN Constipation 08/31/24 08/31/24 History gram/dose oral powder potassium chloride 20 mEq 20 meq PO BID 08/31/24 08/31/24 History tablet,extended release(part/cryst) pregabalin 25 mg capsule 25 mg PO BID 08/31/24 08/31/24 History venlafaxine 150 mg 300 mg PO DAILY 08/31/24 08/31/24 History capsule,extended release 24 hr New Prescriptions to Start Prescriptions: Allergies Allergy/AdvReac Type Severity Reaction Status Date / Time No Known Allergies Allergy Verified 08/30/24 18:01 Assessment and Plan *Assessment and plan (1) Hypotension: Status: Acute Qualifiers: Hypotension type: hypotension due to drug Qualified Code(s): I95.2 - Hypotension due to drugs Category: Medical Code(s): I95.9 - Hypotension, unspecified (2) Bradycardia: Status: Acute Category: Medical Code(s): R00.1 - Bradycardia, unspecified (3) Dehydration: Status: Acute Category: Medical Code(s): E86.0 - Dehydration (4) Elevated serum creatinine: Status: Acute Category: Medical Code(s): R79.89 - Other specified abnormal findings of blood chemistry (5) Diabetes: Status: Acute Qualifiers: Diabetes mellitus type: type 2 Diabetes mellitus middle or intermediate school principal insulin use: with middle or intermediate school principal use Diabetes mellitus complication status: without complication Qualified Code(s): E11.9 - Type 2 diabetes mellitus without complications; Z79.4 - long term care administrator (current) use of insulin Category: Medical Code(s): E11.9 - Type 2 diabetes mellitus without complications (6) COPD (chronic obstructive pulmonary disease): Status: Acute Qualifiers: COPD type: unspecified COPD Qualified Code(s): J44.9 - Chronic obstructive pulmonary disease, unspecified Category: Medical Code(s): J44.9 - Chronic obstructive pulmonary disease, unspecified (7) Sepsis: Status: Acute Qualifiers: Sepsis type: sepsis due to unspecified organism Sepsis acute organ dysfunction status: unspecified Qualified Code(s): A41.9 - Sepsis, unspecified organism Category: Medical Code(s): A41.9 - Sepsis, unspecified organism (8) Coronary-myocardial bridge: Status: Acute Category: Medical Code(s): Q24.5 - Malformation of coronary vessels (9) Paroxysmal atrial fibrillation: Status: Acute Category: Medical Code(s): I48.0 - Paroxysmal atrial fibrillation (10) Presence of Watchman left atrial appendage closure device: Status: Acute Category: Medical Code(s): Z95.818 - Presence of other cardiac implants and grafts Plan Plan: 1. The patient presented to the emergency department with complaints of hypotension and bradycardia. The patient was found to have a systolic blood pressure less than 100 and her heart rate in the 50s. All of her antihypertensive medications have been stopped as well as her metoprolol. Her blood pressure and heart rate have improved. Will continue to hold all of her antihypertensives at this time. 2. The patient has been having intermittent chest pain. She reports having history of a myocardial bridge. She was taking isosorbide mononitrate for this. This has been stopped due to hypotension. Will start Ranexa 500 mg p.o. twice daily. 3. Preliminary echocardiogram shows a normal ejection fraction which is more on the hyperdynamic side consistent with her dehydration. The patient would likely benefit from more IV fluids. Will leave this up to the hospitalist. 4. The patient reports having a history of paroxysmal atrial fibrillation and is status post watchman's device placement. She remains in sinus rhythm at this time. Her beta-freda has currently been stopped due to hypotension and bradycardia. Will continue to hold that at this time. 5. Her blood pressure has improved today. 6. Her LDL goal is less than 100. Will get a lipid panel in the morning. 7. The patient does have a UTI. She is getting IV antibiotics. Will defer to the hospitalist. 8. The patient also has a right lower lobe pneumonia. Will defer this to the hospitalist and pulmonology. 9. The patient does have an KEREN. She does have some dehydration. As mentioned above she also has a slightly hyperdynamic EF and would benefit from IV fluids. 10. Further recommendations will be made pending the patient's response to treatment. Thank you for the opportunity to help participate in the care of this patient. All recommendations and orders are per Dr. Tello.
[2024-08-31] MEDS: RANOLAZINE 500MG ER TABLET 500 MG PO ×2 (12:35→21:03)
--- NOTE | 2024-08-31 15:34 | EXP.ACUTE.PN ---
Subjective *Date: 08/31/24 *Time: 15:45 Interval history: Showing some improvement this morning. On 2 L on morning rounds. Will attempt to wean. Cardiology and pulmonology evaluating today. Heart rate showing improvement with improvement in blood pressure. Not on norepinephrine this morning. Medical Exam Vital signs and Labs for Last 24 Hours: Vital Signs Temp Pulse Pulse Resp BP BP Pulse Ox 08/31/24 15:00 08/31/24 14:00 58 L 19 120/32 L 93 L 08/31/24 13:00 08/31/24 12:00 60 08/31/24 12:00 58 L 20 114/42 L 90 L 08/31/24 11:24 58 L 08/31/24 11:24 55 L 08/31/24 11:24 95 08/31/24 11:00 57 L 18 104/58 L 95 08/31/24 11:00 08/31/24 10:00 56 L 18 109/51 L 93 L 08/31/24 09:00 08/31/24 09:00 59 L 18 112/52 L 94 L 08/31/24 08:00 57 L 93 L 08/31/24 08:00 60 20 97/45 L 93 L 08/31/24 08:00 60 08/31/24 08:00 97.6 F 08/31/24 06:28 59 L 08/31/24 06:28 62 08/31/24 06:28 95 08/31/24 06:18 08/31/24 06:00 53 L 18 102/54 L 96 08/31/24 05:00 55 L 18 105/40 L 95 08/31/24 04:39 08/31/24 04:00 08/31/24 04:00 50 L 08/31/24 04:00 98.4 F 52 L 21 102/47 L 95 08/31/24 03:00 08/31/24 03:00 55 L 13 128/59 L 96 08/31/24 02:00 56 L 16 119/60 95 08/31/24 01:00 55 L 18 126/53 L 91 L 08/31/24 01:00 08/31/24 00:00 60 08/31/24 00:00 97.9 F 58 L 18 112/54 L 91 L 08/31/24 00:00 08/30/24 23:41 133/64 08/30/24 23:23 154/65 H 08/30/24 23:19 162/63 H 08/30/24 23:09 87/40 L 08/30/24 23:05 58 L 18 81/36 L 93 L 08/30/24 23:00 08/30/24 22:58 87/34 L 08/30/24 22:42 90/41 L 08/30/24 22:38 88/28 L 08/30/24 22:00 52 L 18 133/64 98 08/30/24 21:45 114/61 08/30/24 21:30 108/60 L 08/30/24 21:15 90/45 L 08/30/24 21:00 08/30/24 20:50 88/45 L 08/30/24 20:26 50 L 08/30/24 20:00 08/30/24 20:00 97.8 F 50 L 20 92/49 L 98 08/30/24 19:51 99.0 F 51 L 16 92/49 L 08/30/24 17:07 57 L 92/49 L 99 08/30/24 16:31 53 L 16 89/52 L 96 08/30/24 16:11 98.1 F 57 L 16 94/50 L 96 O2 Del Method O2 Flow Rate 08/31/24 15:00 Nasal Cannula 1 08/31/24 14:00 Nasal Cannula 1 08/31/24 13:00 Nasal Cannula 1 08/31/24 12:00 08/31/24 12:00 Room Air 08/31/24 11:24 08/31/24 11:24 08/31/24 11:24 Nasal Cannula 2 08/31/24 11:00 Nasal Cannula 2 08/31/24 11:00 Nasal Cannula 2 08/31/24 10:00 Nasal Cannula 2 08/31/24 09:00 Room Air 08/31/24 09:00 Nasal Cannula 2 08/31/24 08:00 Nasal Cannula 2 08/31/24 08:00 Nasal Cannula 2 08/31/24 08:00 08/31/24 08:00 08/31/24 06:28 08/31/24 06:28 08/31/24 06:28 Nasal Cannula 2 08/31/24 06:18 Nasal Cannula 2 08/31/24 06:00 Nasal Cannula 2 08/31/24 05:00 Nasal Cannula 2 08/31/24 04:39 Nasal Cannula 2 08/31/24 04:00 Nasal Cannula 2 08/31/24 04:00 08/31/24 04:00 Nasal Cannula 2 08/31/24 03:00 Nasal Cannula 2 08/31/24 03:00 Nasal Cannula 2 08/31/24 02:00 Nasal Cannula 2 08/31/24 01:00 Room Air 08/31/24 01:00 Room Air 08/31/24 00:00 08/31/24 00:00 Room Air 08/31/24 00:00 Room Air 08/30/24 23:41 08/30/24 23:23 08/30/24 23:19 08/30/24 23:09 08/30/24 23:05 Nasal Cannula 1 08/30/24 23:00 Nasal Cannula 1 08/30/24 22:58 08/30/24 22:42 08/30/24 22:38 08/30/24 22:00 Nasal Cannula 2 08/30/24 21:45 08/30/24 21:30 08/30/24 21:15 08/30/24 21:00 Nasal Cannula 2 08/30/24 20:50 08/30/24 20:26 08/30/24 20:00 Nasal Cannula 4 08/30/24 20:00 Nasal Cannula 4 08/30/24 19:51 Room Air 08/30/24 17:07 08/30/24 16:31 08/30/24 16:11 Nasal Cannula 3 Intake and Output 08/30/24 08/31/24 08/31/24 23:59 07:59 15:59 Intake Total 1294.934 / 1294.934 770 / 770 Output Total 200 / 200 0 / 200 200 / 200 Balance 1094.934 / 1094.934 0 / 570 570 / 570 Intake: Intake, Oral Amount 240 / 240 720 / 720 Intake, Total IV Amount 1054.934 / 1054.934 50 / 50 0.9 % Sodium Chloride 1000ML 1, 999 / 999 000 ml @ 999 mls/hr IV .Q1H1M [facility] Rx#:[id number] Ceftriaxone 1 gm 1 gm In 0.9 % 50 / 50 50 / 50 Sodium Chloride 50 ml @ 100 mls /hr IV Q24H [facility] Rx#:[id number] Output: Output, Urine Amount 200 / 200 0 / 200 200 / 200 Other: Number of Unmeasured Voids 0 1 2 Weight 151 kg 151 kg Patient Weight 08/31/24 23:59 Weight 151 kg Laboratory Results - last 24 hr 08/30/24 15:50: WBC 10.7, RBC 4.32, Hgb 13.0, Hct 39.1, MCV 90.6, MCH 30.1, MCHC 33.3, RDW 13.3, Plt Count 310, MPV 8.0, Neut % (Auto) 71.4, Lymph % (Auto) 22.8, [place] % (Auto) 4.2, Eos % (Auto) 1.1, Baso % (Auto) 0.5, Neut # (Auto) 7.6, Lymph # (Auto) 2.4, [place] # (Auto) 0.5, Eos # (Auto) 0.1, Baso # (Auto) 0.1, PT 11.1, INR 0.99, APTT 24.1, Sodium 140, Potassium 3.9, Chloride 107, Carbon Dioxide 25, Anion Gap 11.9, BUN 21 H, Creatinine 2.20 H, Estimated Creat Clear 26, Estimated GFR 22 L, Est GFR ( Amer) 27 L, Glucose 148 H, Calcium 8.8, Magnesium 1.9, Total Bilirubin 0.5, AST 26, ALT 17, Alkaline Phosphatase 63, Troponin I < 0.01, NT-Pro-B Natriuret Pep 325 H, Total Protein 7.0, Albumin 3.8, Globulin 3.2, Albumin/Globulin Ratio 1.2, Lipase 280 08/30/24 18:05: Lactate 1.3 08/30/24 18:06: VBG pH 7.29 L, VBG pCO2 50.8, VBG pO2 35.9, VBG HCO3 24.0, VBG Total CO2 25.6, VBG O2 Saturation 64.8, VBG Base Excess -2.5 L, VBG Lactic Acid 2.0 08/30/24 20:04: Troponin I < 0.01 08/30/24 21:37: POC Glucose 114 H 08/30/24 22:07: Urine Color Yellow, Urine Appearance Clear, Urine pH 5.5, Ur Specific [place] >= 1.030, Urine Protein Trace, Urine Glucose (UA) 3+, Urine Ketones Trace, Urine Blood Negative, Urine Nitrate Negative, Urine Bilirubin Negative, Urine Urobilinogen 0.2, Ur Leukocyte Esterase Trace, Urine RBC Occasional, Urine WBC 20-50, Ur Squamous Epith Cells 20-50, Urine Bacteria 3+ 08/30/24 23:30: Troponin I < 0.01 08/31/24 05:03: POC Glucose 108 08/31/24 05:30: WBC 10.7, RBC 4.07 L, Hgb 12.4, Hct 36.9 L, MCV 90.6, MCH 30.5, MCHC 33.6, RDW 13.3, Plt Count 257, MPV 7.6, Neut % (Auto) 68.9, Lymph % (Auto) 24.3, [place] % (Auto) 3.7, Eos % (Auto) 2.7, Baso % (Auto) 0.4, Neut # (Auto) 7.4, Lymph # (Auto) 2.6, [place] # (Auto) 0.4, Eos # (Auto) 0.3, Baso # (Auto) 0.0, Sodium 140, Potassium 3.5, Chloride 109 H, Carbon Dioxide 23, Anion Gap 11.5, BUN 21 H, Creatinine 1.40 H D, Estimated Creat Clear 39, Estimated GFR 38 L, Est GFR ( Amer) 45 L D, Glucose 90 D, Hemoglobin A1c 5.6, Calcium 8.5, Magnesium 1.8, Total Bilirubin 0.6, AST 24, ALT 14, Alkaline Phosphatase 68, Total Protein 6.3, Albumin 3.3 L D, Globulin 3.0, Albumin/Globulin Ratio 1.1, TSH 1.53 08/31/24 11:01: POC Glucose 106 I & O for Labs for Last 24 Hours: Intake & Output 08/28/24 08/29/24 08/30/24 08/31/24 23:59 23:59 23:59 23:59 Intake Total 1294.934 / 1294.934 770 / 770 Output Total 200 / 200 200 / 200 Balance 1094.934 / 1094.934 570 / 570 Weight 151 kg 151 kg Constitutional: Present no acute distress, morbidly obese, chronically ill appearing and cooperative Head: Present atraumatic and normocephalic ENT: Present normal exam Respiratory: Present prolonged expiratory phase and distant breath sounds; Absent respiratory distress, rhonchi, wheezes or crackles Cardiac: Present Regular Rhythm and Bradycardia GI: Present soft and normal bowel sounds; Absent distention or tenderness Extremities: Present normal inspection and full ROM Skin: Present intact; Absent erythema Neuro: Present Grossly Intact, alert, awake, oriented x 3 and moves all extremities Assessment and Plan *Assessment and plan (1) Pneumonia: Status: Acute Category: Medical Code(s): J18.9 - Pneumonia, unspecified organism (2) Paroxysmal atrial fibrillation: Status: Acute Category: Medical Code(s): I48.0 - Paroxysmal atrial fibrillation (3) COPD (chronic obstructive pulmonary disease): Status: Acute Qualifiers: COPD type: unspecified COPD Qualified Code(s): J44.9 - Chronic obstructive pulmonary disease, unspecified Category: Medical Code(s): J44.9 - Chronic obstructive pulmonary disease, unspecified (4) Hypotension: Status: Acute Qualifiers: Hypotension type: hypotension due to drug Qualified Code(s): I95.2 - Hypotension due to drugs Category: Medical Code(s): I95.9 - Hypotension, unspecified (5) Bradycardia: Status: Acute Category: Medical Code(s): R00.1 - Bradycardia, unspecified (6) Dehydration: Status: Acute Category: Medical Code(s): E86.0 - Dehydration (7) Coronary-myocardial bridge: Status: Acute Category: Medical Code(s): Q24.5 - Malformation of coronary vessels (8) Presence of Watchman left atrial appendage closure device: Status: Acute Category: Medical Code(s): Z95.818 - Presence of other cardiac implants and grafts (9) Diabetes: Status: Acute Qualifiers: Diabetes mellitus complication status: without complication Diabetes mellitus bed bug exterminator insulin use: with bed bug exterminator use Diabetes mellitus type: type 2 Qualified Code(s): E11.9 - Type 2 diabetes mellitus without complications; Z79.4 - residential (current) use of insulin Category: Medical Code(s): E11.9 - Type 2 diabetes mellitus without complications (10) Nocturnal hypoxia: Status: Acute Category: Medical Code(s): G47.34 - Idiopathic sleep related nonobstructive alveolar hypoventilation Plan Ms. Tellez is a 69-year-old female who presented with complaint of low blood pressure, low heart rate. Found to be hypotensive with bradycardia. Case discussed with ER physician, request admission for further management of pneumonia and hypotension. Medicine agreed to admit. Cardiology and pulmonology consulted to assist with care. Problems addressed as follows: Pneumonia New oxygen requirement COPD Suspected UTI -Chest x-ray reviewed showing right lower lobe infiltrate. Patient has afebrile with normal white count of 10.7. Continue antibiotics with ceftriaxone 1 g daily and azithromycin 500 mg daily for 5 days. -Wean oxygen as tolerated, goal sats greater 90%. -Discussed case with pulmonology, recommend continuing antibiotics IV while inpatient, weaned to cefdinir at discharge for total of 5 days. DuoNebs 4 times a day as needed. -Cultures pending -Repeat CBC, CMP, magnesium ordered for the morning -Urine culture pending, continue antibiotics as above awaiting speciation and sensitivity CKD 3 -BUN 21, creatinine 1.4, appears to be patient's baseline. -Electrolytes within appropriate range with potassium of 3.5, magnesium 1.8, replace per protocol Bradycardia Myocardial bridge -Discussed case with cardiology, reviewed patient's echocardiogram, preliminarily shows normal EF with hyperdynamic ventricle consistent with dehydration. Will administer additional liter of fluids gently over the course of the next 8 hours. -Hold metoprolol. -Initiate Ranexa 500 mg twice daily -Due to watchman's device placement, no indication for anticoagulation. Appears to be in sinus rhythm at this time. Monitor on telemetry. -Hold lisinopril and Imdur -Continue Jardiance 10 mg daily, Plavix 75 mg daily, aspirin 81 mg daily. Depression: Continue Zoloft 100 mg daily for mood. Diabetes: Well-controlled with A1c of 5.6, continue metformin 5 mg twice daily for diabetes; continue insulin sliding scale as needed ACHS with fingersticks. Continue home glargine 35 units nightly Hypothyroid: Continue levothyroxine 75 mcg daily for hypothyroid Full code Lovenox 40mg subcu twice daily Diabetic diet
[2024-08-31] MEDS: LACTATED RINGERS 1000ML 1,000 ML 125 ML IV (15:40)
[2024-08-31 16:13] LABS: HIV (1&2) Antibody Rapid NONREACTIVE (NONREACTIVE)
[2024-08-31 16:39] LABS: POC Glucose,Bedside 95 (70-110)
--- NOTE | 2024-08-31 16:39 | PC.NURSE ---
pt currently resting supine in bed. LR going at 250 currently- to be turned to 125 once 500ml has infused per Dr. Glover. pt was weaned to RA, but dropped to 88, so she was placed on 1L NC. tolerating well with sats >90%. SCDS in place. pt has been tao (55-65) this shift, and hypotenstive. pt has complained of pain twice and was treated per dec. fsbs this shift did not require coverage. pt seen by cardiology and pulmonology this shift. 1+ BLE edema. bed alarm for pt safety. no complaints at this time. bed in low and locked position. call light in reach.
[2024-08-31 20:11] LABS: POC Glucose,Bedside 112 (70-110)
[2024-08-31] MEDS: INSULIN GLARGINE 100 UNITS/ML 3ML FLEXPEN 35 UNIT SUBCUT (21:02)
[2024-08-31] MEDS: ATORVASTATIN 40MG TABLET 40 MG PO (21:03)
[2024-08-31] MEDS: CEFTRIAXONE 1 GM 1 GM in 0.9 % SODIUM CHLORIDE 50 ML IV (21:03)
[2024-08-31] MEDS: ENOXAPARIN 40MG/0.4ML SYRINGE 40 MG SUBCUT (21:03)
[2024-09-01] VITALS: BP 115/46; PULSE 50; PULSE 61; RESP 18; TEMP 36.9; O2SAT 95
[2024-09-01 04:00] VITALS: BP 110/58; PULSE 50; PULSE 56; RESP 16; TEMP 36.7; O2SAT 96; BMI 49.3
[2024-09-01] MEDS: LEVOTHYROXINE 75MCG (0.075MG) TAB 75 MCG PO (06:00)
[2024-09-01 06:02] LABS: POC Glucose,Bedside 87 (70-110)
[2024-09-01 06:30] LABS: Alanine Aminotransferase 15 U/L (12-78); Albumin Level 3.3 g/dl (3.5-5.0); Albumin/Globulin Ratio 1.2 (1.1-1.8); Alkaline Phosphatase 63 U/L (38-126); Anion Gap 8.8 mEq/L (5-15); Aspartate Amino Transferase 22 U/L (14-36); Bilirubin,Total 0.5 mg/dl (0.2-1.3); Blood Urea Nitrogen 18 mg/dl (7-17); Calcium 8.9 mg/dl (8.4-10.2); Carbon Dioxide 26 mmol/L (22.0-30.0); Chloride 109 mmol/L (98-107); Creatinine Clearance Estimated 46 mL/min (50-200); Estimated Glomerular Filt Rate 45 ml/min (>60); GFR (African American) 54 ML/MIN (>60); Globulin 2.8 g/dL (1.3-3.2); Glucose 80 mg/dl (74-100); Magnesium 1.7 mg/dl (1.6-2.3); Potassium 3.8 mmoL/L (3.5-5.1); Sodium 140 mmol/L (136-145); Total Protein,Serum 6.1 g/dl (6.3-8.2)
[2024-09-01 06:57] LABS: Basophils % 0.7 % (0.1-2.0); Eosinophils # 0.3 K/mm3 (0.0-0.4); Eosinophils % 4.9 % (0.1-12.0); Hematocrit 36.8 % (37.0-47.0); Hemoglobin 12.5 g/dL (12.2-16.2); Lymphocytes # 2.1 K/mm3 (0.7-4.5); Lymphocytes % 32.7 % (10-50); Mean Corpuscular Hemoglobin 30.4 pg (27.0-31.2); Mean Corpuscular Volume 89.6 fl (81-99); Mean Platelet Volume 7.8 fl (7.4-10.4); Monocytes # 0.3 K/mm3 (0.1-1.0); Monocytes % 4.8 % (1.7-9.3); Neutrophils # 3.7 K/mm3 (1.8-7.8); Platelet Count 238 K/mm3 (142-424); Red Cell Distribution Width 13.4 % (11.5-17.5); White Blood Count 6.5 K/mm3 (4.8-10.8)
[2024-09-01 08:00] VITALS: BP 110/57; PULSE 53; PULSE 60; RESP 15; TEMP 36.4; O2SAT 97
[2024-09-01] MEDS: METFORMIN 500MG TABLET 500 MG PO (08:15)
[2024-09-01] MEDS: CLOPIDOGREL 75MG TAB 75 MG PO (08:37)
[2024-09-01] MEDS: ASPIRIN EC 81MG TABLET 81 MG PO (08:37)
[2024-09-01] MEDS: AZITHROMYCIN 250MG TABLET 500 MG PO (08:37)
[2024-09-01] MEDS: ENOXAPARIN 40MG/0.4ML SYRINGE 40 MG SUBCUT (08:38)
[2024-09-01] MEDS: EMPAGLIFLOZIN 10MG TABLET 25 MG PO (08:38)
[2024-09-01] MEDS: POTASSIUM CHLORIDE 20MEQ TAB 20 MEQ PO (08:38)
[2024-09-01] MEDS: RANOLAZINE 500MG ER TABLET 500 MG PO (08:38)
[2024-09-01] MEDS: VENLAFAXINE XR 75MG CAPSULE 300 MG PO (08:38)
[2024-09-01] MEDS: OXYCODONE 5MG W/APAP 325MG TABLET 2 EACH PO (08:40)
[2024-09-01] MEDS: PREGABALIN 25MG CAPSULE 25 MG PO (08:40)
[2024-09-01 09:23] LABS: Chol/HDL Ratio 3.2 (1-3.5); Cholesterol 121 mg/dl (140-200); HDL Cholesterol 38 mg/dl (40-60); Triglycerides 87 mg/dl (30-150); VLDL Cholesterol 17 mg/dL (0-40)
--- NOTE | 2024-09-01 09:30 | P.DS_ITS ---
General Admission date:: 08/30/24 Discharge date: 09/01/24 HPI HPI HPI: Ms. Tellez a [employer] . Normally goes to the [facility]. Patient had actually been at the [facility] today had low blood pressure but then 1 was taken that was adequate she was treated and released. Patient noted for the last week she has been feeling weak and sometimes dizzy had gotten worse today, she was seen at the [facility] sent home became worse today her friend then called an ambulance. Patient arrived in the emergency room with systolic below 100 and also bradycardia. Patient noted she usually has hypertension. She came to the emergency room and has been treated., No improvement with the lower blood pressure lower heart rate. Have spoken with the ER physician I do agree that with the patient's sudden change with her weakness that we need to place her upstairs.. I will go ahead and admit her add a cardiology consult. Will look for source of sudden change in her vital signs. Patient is noted at this time to be in calm cooperative and showing no signs of distress. Hospital Course Hospital Course Hospital Course: Ms. Tellez is a 69-year-old female who presented with complaint of low blood pressure, low heart rate. Found to be hypotensive with bradycardia. Case discussed with ER physician, request admission for further management of pneumonia and hypotension. Medicine agreed to admit. Cardiology and pulmonology consulted to assist with care. Patient's blood pressure meds and rate controlling meds were held during admission. Treated for Pna +/- UTI. Overall did well. Able to wean oxygen to 1 L by day of discharge. Has oxygen at home which she wears intermittently. Blood pressure and heart rate improved. Stable to discharge home with further management as an outpatient. Order placed for home health at discharge due to patient's medical needs and concern for mild debility. Problems addressed as follows: Pneumonia New oxygen requirement COPD Suspected UTI -Chest x-ray reviewed showing right lower lobe infiltrate. Patient was afebrile with normal white count of 10.7. Initiated on antibiotics with ceftriaxone and azithromycin. Pulmonology consulted to assist with care. Transition to cefdinir to complete 5 days total of antibiotics. Continue DuoNebs as needed every 6 hours. Cultures were obtained, negative at time of discharge. Labs remained stable with normal white count of 6.5 on day of discharge. Urine obtained suspicious for UTI, culture still pending at discharge. Concern for b eing polymicrobial. Will follow after discharge in case needs adjustment to antibiotics. Weaned to 1 L oxygen by day of discharge. Wears oxygen at home intermittently. Has a CPAP she wears at home as well for sleep apnea, recommend she wear this when at home. Patient says she is having difficulty with her mask and is working on getting this replaced/adjusted from her sleep medicine provider. CKD 3: KEREN present on admission with elevated creatinine, improved by day of discharge to BUN 18, creatinine 1.2. Appears to be patient's baseline. Electrolytes normal. Bradycardia Myocardial bridge -Heart rate in the low 50s with soft blood pressure on admission. Responded to gentle hydration. Blood pressure meds were held. Case was discussed with cardiology who was consulted to assist with care. Echo was obtained showing normal EF with hyperdynamic ventricle. Recommend holding metoprolol, lisinopril, Imdur. Was initiated on Ranexa 500 mg twice daily for mild anginal symptoms. Monitored on telemetry. Overall did well. Due to watchman's device placement, no indication for anticoagulation. Appears to be in sinus rhythm at this time. Continue Jardiance 10 mg daily, Plavix 75 mg daily, aspirin 81 mg daily. Depression: Continue home regimen with venlafaxine, mirtazapine, hydroxyzine, and well future Diabetes: Well-controlled with A1c of 5.6, continue metformin 500 mg twice daily for diabetes; resume home regimen with basal insulin, Jardiance, semaglutide. Hypothyroid: Continue levothyroxine 75 mcg daily for hypothyroid Total time spent on discharge 32 minutes in counseling, documentation, chart review, and direct care with patient. Follow with cardiology and pulmonology as an outpatient. Exam Data for Last 24 hours Vital signs and Labs for Last 24 Hours: Temp Pulse Resp BP Pulse Ox O2 Del Method O2 Flow Rate 97.6 F 53 L 15 110/57 L 97 Nasal Cannula 1 09/01/24 08:00 09/01/24 08:00 09/01/24 08:00 09/01/24 08:00 09/01/24 08:00 09/01/24 08:00 09/01/24 08:00 Laboratory Results - last 24 hr 08/30/24 15:50: HIV 1&2 Antibody Rapid Nonreactive 08/31/24 11:01: POC Glucose 106 08/31/24 16:29: POC Glucose 95 08/31/24 20:04: POC Glucose 112 H 09/01/24 05:33: WBC 6.5 D, RBC 4.10 L, Hgb 12.5, Hct 36.8 L, MCV 89.6, MCH 30.4, MCHC 34.0, RDW 13.4, Plt Count 238, MPV 7.8, Neut % (Auto) 57.0, Lymph % (Auto) 32.7, [place] % (Auto) 4.8, Eos % (Auto) 4.9, Baso % (Auto) 0.7, Neut # (Auto) 3.7, Lymph # (Auto) 2.1, [place] # (Auto) 0.3, Eos # (Auto) 0.3, Baso # (Auto) 0.0, Sodium 140, Potassium 3.8, Chloride 109 H, Carbon Dioxide 26, Anion Gap 8.8, BUN 18 H, Creatinine 1.20 H, Estimated Creat Clear 46, Estimated GFR 45 L, Est GFR ( Amer) 54 L, Glucose 80, Calcium 8.9, Magnesium 1.7, Total Bilirubin 0.5, AST 22, ALT 15, Alkaline Phosphatase 63, Total Protein 6.1 L, Albumin 3.3 L, Globulin 2.8, Albumin/Globulin Ratio 1.2, Triglycerides 87, Cholesterol 121 L, VLDL Cholesterol 17, HDL Cholesterol 38 L, Cholesterol/HDL Ratio 3.2 09/01/24 05:55: POC Glucose 87 I & O for Last 24 hours: Intake & Output 08/29/24 08/30/24 08/31/24 09/01/24 23:59 23:59 23:59 23:59 Intake Total 1294.934 / 0054.391 4884 / 1623 670 / 670 Output Total 200 / 200 200 / 200 0 / 0 Balance 1094.934 / 5348.334 4279 / 1423 670 / 670 Weight 151 kg 151 kg 151 kg Microbiology Reports for the Last 24 Hours: Microbiology 08/30/24 18:00 Blood Blood Culture - Preliminary 08/30/24 18:00 Blood Blood Culture - Preliminary NO GROWTH AFTER 24 HOURS Constitutional Constitutional: no acute distress, morbidly obese, chronically ill appearing and cooperative *Routine HEENT Exam Head: Present normocephalic Eye: Present EOMI and PERRL ENT: Present mucous membranes moist *Routine Neck Exam Neck: Present supple; Absent lymphadenopathy *Routine Respiratory Exam Respiratory: Present CTA bilaterally, distant breath sounds and diminished air movement; Absent rhonchi, wheezes or crackles *Routine Cardiovascular Exam Cardiovascular: Present RRR *Routine Abdominal Exam Abdominal: Present soft and normoactive bowel sounds; Absent tenderness *Routine Rectal Exam Patient deferred: visual exam *Routine Exam Patient deferred: external exam *Routine Extremities Exam Extremities: Absent cyanosis, clubbing or edema *Routine Skin Exam Skin: Present intact and warm; Absent cyanosis or rash *Routine Neurological Exam Neurological: Present alert, oriented X3 and moving all extremities; Absent altered mental status Results Data Completed and Pending Labs on day of discharge: Labs from last 24 hours 09/01/24 09/01/24 08/31/24 05:55 05:33 20:04 WBC 6.5 D RBC 4.10 L Hgb 12.5 Hct 36.8 L MCV 89.6 MCH 30.4 MCHC 34.0 RDW 13.4 Plt Count 238 MPV 7.8 Neut % (Auto) 57.0 Lymph % (Auto) 32.7 [place] % (Auto) 4.8 Eos % (Auto) 4.9 Baso % (Auto) 0.7 Neut # (Auto) 3.7 Lymph # (Auto) 2.1 [place] # (Auto) 0.3 Eos # (Auto) 0.3 Baso # (Auto) 0.0 Sodium 140 Potassium 3.8 Chloride 109 H Carbon Dioxide 26 Anion Gap 8.8 BUN 18 H Creatinine 1.20 H Estimated Creat Clear 46 Estimated GFR 45 L Est GFR ( Amer) 54 L Glucose 80 POC Glucose 87 112 H Calcium 8.9 Magnesium 1.7 Total Bilirubin 0.5 AST 22 ALT 15 Alkaline Phosphatase 63 Total Protein 6.1 L Albumin 3.3 L Globulin 2.8 Albumin/Globulin Ratio 1.2 Triglycerides 87 Cholesterol 121 L VLDL Cholesterol 17 HDL Cholesterol 38 L Cholesterol/HDL Ratio 3.2 HIV 1&2 Antibody Rapid 08/31/24 08/31/24 08/30/24 16:29 11:01 15:50 WBC RBC Hgb Hct MCV MCH MCHC RDW Plt Count MPV Neut % (Auto) Lymph % (Auto) [place] % (Auto) Eos % (Auto) Baso % (Auto) Neut # (Auto) Lymph # (Auto) [place] # (Auto) Eos # (Auto) Baso # (Auto) Sodium Potassium Chloride Carbon Dioxide Anion Gap BUN Creatinine Estimated Creat Clear Estimated GFR Est GFR ( Amer) Glucose POC Glucose 95 106 Calcium Magnesium Total Bilirubin AST ALT Alkaline Phosphatase Total Protein Albumin Globulin Albumin/Globulin Ratio Triglycerides Cholesterol VLDL Cholesterol HDL Cholesterol Cholesterol/HDL Ratio HIV 1&2 Antibody Rapid Nonreactive Preliminary micro results at discharge 08/30/24 18:00 Blood Culture - Preliminary Blood 08/30/24 18:00 Blood Culture - Preliminary Blood NO GROWTH AFTER 24 HOURS DS: Diagnosis Discharge Diagnosis (1) Pneumonia: Status: Acute Code(s): J18.9 - Pneumonia, unspecified organism (2) Sepsis: Status: Acute Code(s): A41.9 - Sepsis, unspecified organism Qualifiers: Sepsis acute organ dysfunction status: unspecified Sepsis type: sepsis due to unspecified organism Qualified Code(s): A41.9 - Sepsis, unspecified organism (3) KEREN (acute kidney injury): Status: Acute Code(s): N17.9 - Acute kidney failure, unspecified (4) Bradycardia: Status: Acute Code(s): R00.1 - Bradycardia, unspecified (5) Elevated serum creatinine: Status: Acute Code(s): R79.89 - Other specified abnormal findings of blood chemistry (6) Hypotension: Status: Acute Code(s): I95.9 - Hypotension, unspecified Qualifiers: Hypotension type: hypotension due to drug Qualified Code(s): I95.2 - Hypotension due to drugs (7) Diabetes: Status: Acute Code(s): E11.9 - Type 2 diabetes mellitus without complications Qualifiers: Diabetes mellitus complication status: without complication Diabetes mellitus shelter insulin use: with oysterman use Diabetes mellitus type: type 2 Qualified Code(s): E11.9 - Type 2 diabetes mellitus without complications; Z79.4 - terminal gauger (current) use of insulin (8) COPD (chronic obstructive pulmonary disease): Status: Acute Code(s): J44.9 - Chronic obstructive pulmonary disease, unspecified Qualifiers: COPD type: unspecified COPD Qualified Code(s): J44.9 - Chronic obstructive pulmonary disease, unspecified (9) Dehydration: Status: Acute Code(s): E86.0 - Dehydration (10) UTI (urinary tract infection): Status: Acute Code(s): N39.0 - Urinary tract infection, site not specified Meds Home Medications and Allergies Home Medications ?Medication ?Instructions ?Recorded ?Confirmed ?Type acetaminophen 325 mg tablet 325 - 650 mg PO Q6HP PRN pain 08/30/24 08/31/24 History (mild 1-3) amlodipine 10 mg tablet 10 mg PO DAILY 08/30/24 08/31/24 History aspirin 81 mg tablet,delayed 81 mg PO DAILY 08/30/24 08/30/24 History release diclofenac sodium 3 % topical gel 4 g topical BID 08/30/24 08/31/24 History docusate sodium 100 mg capsule 100 mg PO BID 08/30/24 08/31/24 History empagliflozin 25 mg tablet 12.5 mg PO DAILY 08/30/24 08/31/24 History furosemide 20 mg tablet 20 mg PO DAILYP PRN Edema 08/30/24 08/31/24 History insulin glargine 100 unit/mL (3 35 unit SQ HS 08/30/24 08/31/24 History mL) subcutaneous pen lisinopril 20 mg tablet 20 mg PO DAILY 08/30/24 08/31/24 History metformin 500 mg tablet 500 mg PO BID 08/30/24 08/31/24 History metoprolol succinate 25 mg 25 mg PO DAILY 08/30/24 08/30/24 History tablet,extended release 24 hr naloxone 4 mg/actuation nasal spray 4 mg intranasal Q3MINP PRN overdose 08/30/24 08/31/24 History oxycodone-acetaminophen 5 mg-325 2 tab PO Q6HP PRN Pain (Moderate 08/30/24 08/31/24 History mg tablet 4-6) pantoprazole 40 mg tablet,delayed 40 mg PO DAILY 08/30/24 08/31/24 History release semaglutide 1 mg/dose (4 mg/3 mL) 2.4 mg SQ WEEKLY 08/30/24 08/30/24 History subcutaneous pen injector tizanidine 4 mg tablet 4 mg PO TID 08/30/24 08/31/24 History albuterol sulfate 90 mcg/actuation 2 puff inhalation QIDP PRN 08/31/24 08/31/24 History aerosol inhaler Shortness Of Breath Or Wheezing atorvastatin 40 mg tablet 40 mg PO DAILY 08/31/24 08/31/24 History bupropion HCl 150 mg 24 hr tablet, 450 mg PO AM 08/31/24 08/31/24 History extended release cetirizine 10 mg tablet 10 mg PO DAILY 08/31/24 08/31/24 History cholecalciferol (vitamin D3) 25 25 mcg PO DAILY 08/31/24 08/31/24 History mcg (1,000 unit) capsule (Vitamin D3) ferrous gluconate 324 mg (37.5 mg 324 mg PO Q48H 08/31/24 08/31/24 History iron) tablet fluocinonide 0.05 % topical 1 applic topical BID 08/31/24 08/31/24 History solution fluticasone propionate 50 1 spray intranasal DAILY 08/31/24 08/31/24 History mcg/actuation nasal spray,suspension hydroxyzine HCl 25 mg tablet 25 - 50 mg PO DAILYP PRN Anxiety 08/31/24 08/31/24 History isosorbide mononitrate 30 mg 45 mg PO DAILY 08/31/24 08/31/24 History tablet,extended release 24 hr levothyroxine 37.5 mcg capsule 37.5 mcg PO DAILY 08/31/24 08/31/24 History lidocaine 5 % topical patch 1 patch topical DAILYP PRN pain 08/31/24 08/31/24 History (mild 1-3) mirtazapine 15 mg tablet 15 mg PO HS 08/31/24 08/31/24 History polyethylene glycol 3350 17 17 g PO DAILYP PRN Constipation 08/31/24 08/31/24 History gram/dose oral powder potassium chloride 20 mEq 20 meq PO BID 08/31/24 08/31/24 History tablet,extended release(part/cryst) pregabalin 25 mg capsule 25 mg PO BID 08/31/24 08/31/24 History venlafaxine 150 mg 300 mg PO DAILY 08/31/24 08/31/24 History capsule,extended release 24 hr cefdinir 300 mg capsule 300 mg PO BID 4 days #8 caps 09/01/24 Rx fluticasone 100 mcg-salmeterol 50 1 inh inhalation BIDRT 30 days #60 09/01/24 Rx mcg/dose blistr powdr for ea inhalation (Advair Diskus) ranolazine 500 mg tablet,extended 500 mg PO BID 30 days #60 tabs 11/20/24 Rx release,12 hr New Prescriptions to Start Prescriptions: Elkin Clark fluticasone propion-salmeterol [Advair Diskus] Elkin GloverolaziElkin August Allergies Allergy/AdvReac Type Severity Reaction Status Date / Time No Known Allergies Allergy Verified 08/30/24 18:01 Discharge Plan Disposition Patient Disposition: Home Health Service Discharge Order Discharge Orders: Discharge Order (Routine); Ordered 09/01/24 Ordered By: Elkin Glover Follow up Plan Follow up with: Chata Ramires MD [Physician] - 09/13/24 1:00 pm Rahat Tello MD [Staff Physician] - 09/14/24 2:30 pm Prescriptions/Medication Reconciliation: New cefdinir 300 mg capsule 300 mg PO BID 4 Days Qty: 8 0RF fluticasone propion-salmeterol [Advair Diskus] 100-50 mcg/dose Blister With Device 1 inh inhalation BIDRT 30 Days Qty: 60 0RF ranolazine 500 mg Tablet Extended Release 12 Hr 500 mg PO BID 30 Days Qty: 60 0RF Continued metformin 500 mg Tablet 500 mg PO BID diclofenac sodium 3 % Gel 4 g TOPICAL BID acetaminophen 325 mg Tablet 325 - 650 mg PO Q6HP PRN (Reason: pain (mild 1-3)) tizanidine 4 mg Tablet 4 mg PO TID aspirin 81 mg Tablet,Delayed Release (Dr/Ec) 81 mg PO DAILY oxycodone-acetaminophen 5-325 mg Tablet 2 tab PO Q6HP PRN (Reason: Pain (Moderate 4-6)) pantoprazole 40 mg Tablet,Delayed Release (Dr/Ec) 40 mg PO DAILY docusate sodium 100 mg Capsule 100 mg PO BID Rx Instructions: patient states she takes 1 tablet once daily furosemide 20 mg Tablet 20 mg PO DAILYP PRN (Reason: Edema) insulin glargine 100 unit/mL (3 mL) Insulin Pen 35 unit SQ HS Rx Instructions: patient states she injects 37 units subcutaneously at bedtime empagliflozin 25 mg Tablet 12.5 mg PO DAILY naloxone 4 mg/actuation [place],Non-Aerosol 4 mg INTRANASAL Q3MINP PRN (Reason: overdose) Rx Instructions: spray 1 dose into ONE nostril; alternate nostrils w each dose until help arrives semaglutide 1 mg/dose (4 mg/3 mL) Pen Injector 2.4 mg SQ WEEKLY Rx Instructions: patient states she takes 4 mg subcutaneously weekly on wednesdays atorvastatin 40 mg Tablet 40 mg PO DAILY cetirizine 10 mg Tablet 10 mg PO DAILY lidocaine 5 % Adhesive Patch,Medicated 1 patch TOPICAL DAILYP PRN (Reason: pain (mild 1-3)) Rx Instructions: leave on most painful area for up to 12 hrs hydroxyzine HCl 25 mg Tablet 25 - 50 mg PO DAILYP PRN (Reason: Anxiety) mirtazapine 15 mg Tablet 15 mg PO HS polyethylene glycol 3350 17 gram/dose Powder 17 g PO DAILYP PRN (Reason: Constipation) albuterol sulfate 90 mcg/actuation Hfa Aerosol Inhaler 2 puff INHALATION QIDP PRN (Reason: Shortness Of Breath Or Wheezing) fluticasone propionate 50 mcg/actuation [place],Suspension 1 spray INTRANASAL DAILY Rx Instructions: administer into each nostril cholecalciferol (vitamin D3) [Vitamin D3] 25 mcg (1,000 unit) Capsule 25 mcg PO DAILY bupropion HCl 150 mg Tablet Extended Release 24 Hr 450 mg PO AM pregabalin 25 mg Capsule 25 mg PO BID ferrous gluconate 324 mg (37.5 mg iron) Tablet 324 mg PO Q48H levothyroxine 37.5 mcg Capsule 37.5 mcg PO DAILY venlafaxine 150 mg Capsule,Extended Release 24hr 300 mg PO DAILY potassium chloride 20 mEq Tablet,Er Particles/Crystals 20 meq PO BID Rx Instructions: PATIENT STATES SHE TAKES THIS NEEDED WHEN SHE TAKES FUROSEMIDE fluocinonide 0.05 % Solution 1 applic TOPICAL BID Held lisinopril 20 mg Tablet 20 mg PO DAILY Hold Instructions: Pending follow-up with cardiology amlodipine 10 mg Tablet 10 mg PO DAILY Hold Instructions: Pending follow-up with cardiology metoprolol succinate 25 mg Tablet Extended Release 24 Hr 25 mg PO DAILY Hold Instructions: Pending follow-up with cardiology isosorbide mononitrate 30 mg Tablet Extended Release 24 Hr 45 mg PO DAILY Hold Instructions: Pending follow-up with cardiology Problem Reconciliation Problems Reviewed?: Yes Patient Discharge Instructions ACTIVITY: Continue current activity DIET: continue same diet Patient Instructions: DI for Muscle Weakness, DI for Sepsis -- Adult, DI for Bradycardia, DI for Hypotension Print Language: Bengali Providers Primary Care Provider: Provider,Referral Admit Provider: Asad Lowry Attending Provider: Asad Lowry
[2024-09-01 09:34] LABS: Direct LDL Cholesterol 59.11 mg/dL (100-129)
--- NOTE | 2024-09-01 09:44 | EXP.PULM.PN ---
Subjective *Date: 09/01/24 *Time: 11:17 Interval history: No acute respiratory vents overnight. Patient admits continued improvement in her respiratory symptoms. Continue to remain on room air during the daytime. Pulmonology Exam Inpatient Vital signs and Labs for Last 24 Hours: Temp Pulse Resp BP Pulse Ox O2 Del Method O2 Flow Rate 97.6 F 53 L 15 110/57 L 97 Nasal Cannula 1 09/01/24 08:00 09/01/24 08:00 09/01/24 08:00 09/01/24 08:00 09/01/24 08:00 09/01/24 08:00 09/01/24 08:00 Laboratory Results - last 24 hr 08/30/24 15:50: HIV 1&2 Antibody Rapid Nonreactive 08/31/24 11:01: POC Glucose 106 08/31/24 16:29: POC Glucose 95 08/31/24 20:04: POC Glucose 112 H 09/01/24 05:33: WBC 6.5 D, RBC 4.10 L, Hgb 12.5, Hct 36.8 L, MCV 89.6, MCH 30.4, MCHC 34.0, RDW 13.4, Plt Count 238, MPV 7.8, Neut % (Auto) 57.0, Lymph % (Auto) 32.7, [place] % (Auto) 4.8, Eos % (Auto) 4.9, Baso % (Auto) 0.7, Neut # (Auto) 3.7, Lymph # (Auto) 2.1, [place] # (Auto) 0.3, Eos # (Auto) 0.3, Baso # (Auto) 0.0, Sodium 140, Potassium 3.8, Chloride 109 H, Carbon Dioxide 26, Anion Gap 8.8, BUN 18 H, Creatinine 1.20 H, Estimated Creat Clear 46, Estimated GFR 45 L, Est GFR ( Amer) 54 L, Glucose 80, Calcium 8.9, Magnesium 1.7, Total Bilirubin 0.5, AST 22, ALT 15, Alkaline Phosphatase 63, Total Protein 6.1 L, Albumin 3.3 L, Globulin 2.8, Albumin/Globulin Ratio 1.2, Triglycerides 87, Cholesterol 121 L, LDL Cholesterol Direct 59.11 L, VLDL Cholesterol 17, HDL Cholesterol 38 L, Cholesterol/HDL Ratio 3.2 09/01/24 05:55: POC Glucose 87 Temp Pulse Resp BP Pulse Ox O2 Del Method O2 Flow Rate 97.6 F 56 L 18 109/51 L 93 L Nasal Cannula 2 08/31/24 08:00 08/31/24 10:00 08/31/24 10:00 08/31/24 10:00 08/31/24 10:00 08/31/24 10:00 08/31/24 10:00 Laboratory Results - last 24 hr 08/30/24 15:50: WBC 10.7, RBC 4.32, Hgb 13.0, Hct 39.1, MCV 90.6, MCH 30.1, MCHC 33.3, RDW 13.3, Plt Count 310, MPV 8.0, Neut % (Auto) 71.4, Lymph % (Auto) 22.8, [place] % (Auto) 4.2, Eos % (Auto) 1.1, Baso % (Auto) 0.5, Neut # (Auto) 7.6, Lymph # (Auto) 2.4, [place] # (Auto) 0.5, Eos # (Auto) 0.1, Baso # (Auto) 0.1, PT 11.1, INR 0.99, APTT 24.1, Sodium 140, Potassium 3.9, Chloride 107, Carbon Dioxide 25, Anion Gap 11.9, BUN 21 H, Creatinine 2.20 H, Estimated Creat Clear 26, Estimated GFR 22 L, Est GFR ( Amer) 27 L, Glucose 148 H, Calcium 8.8, Magnesium 1.9, Total Bilirubin 0.5, AST 26, ALT 17, Alkaline Phosphatase 63, Troponin I < 0.01, NT-Pro-B Natriuret Pep 325 H, Total Protein 7.0, Albumin 3.8, Globulin 3.2, Albumin/Globulin Ratio 1.2, Lipase 280 08/30/24 18:05: Lactate 1.3 08/30/24 18:06: VBG pH 7.29 L, VBG pCO2 50.8, VBG pO2 35.9, VBG HCO3 24.0, VBG Total CO2 25.6, VBG O2 Saturation 64.8, VBG Base Excess -2.5 L, VBG Lactic Acid 2.0 08/30/24 20:04: Troponin I < 0.01 08/30/24 21:37: POC Glucose 114 H 08/30/24 22:07: Urine Color Yellow, Urine Appearance Clear, Urine pH 5.5, Ur Specific [place] >= 1.030, Urine Protein Trace, Urine Glucose (UA) 3+, Urine Ketones Trace, Urine Blood Negative, Urine Nitrate Negative, Urine Bilirubin Negative, Urine Urobilinogen 0.2, Ur Leukocyte Esterase Trace, Urine RBC Occasional, Urine WBC 20-50, Ur Squamous Epith Cells 20-50, Urine Bacteria 3+ 08/30/24 23:30: Troponin I < 0.01 08/31/24 05:03: POC Glucose 108 08/31/24 05:30: WBC 10.7, RBC 4.07 L, Hgb 12.4, Hct 36.9 L, MCV 90.6, MCH 30.5, MCHC 33.6, RDW 13.3, Plt Count 257, MPV 7.6, Neut % (Auto) 68.9, Lymph % (Auto) 24.3, [place] % (Auto) 3.7, Eos % (Auto) 2.7, Baso % (Auto) 0.4, Neut # (Auto) 7.4, Lymph # (Auto) 2.6, [place] # (Auto) 0.4, Eos # (Auto) 0.3, Baso # (Auto) 0.0, Sodium 140, Potassium 3.5, Chloride 109 H, Carbon Dioxide 23, Anion Gap 11.5, BUN 21 H, Creatinine 1.40 H D, Estimated Creat Clear 39, Estimated GFR 38 L, Est GFR ( Amer) 45 L D, Glucose 90 D, Hemoglobin A1c 5.6, Calcium 8.5, Magnesium 1.8, Total Bilirubin 0.6, AST 24, ALT 14, Alkaline Phosphatase 68, Total Protein 6.3, Albumin 3.3 L D, Globulin 3.0, Albumin/Globulin Ratio 1.1, TSH 1.53 I & O for Labs for Last 24 Hours: Intake & Output 08/29/24 08/30/24 08/31/24 09/01/24 23:59 23:59 23:59 23:59 Intake Total 1294.934 / 9154.988 4780 / 1623 670 / 670 Output Total 200 / 200 200 / 200 0 / 0 Balance 1094.934 / 2322.369 6287 / 1423 670 / 670 Weight 332 lb 14.368 oz 332 lb 14.368 oz 332 lb 14.368 oz Intake & Output 08/28/24 08/29/24 08/30/24 08/31/24 23:59 23:59 23:59 23:59 Intake Total 1294.934 / 1294.934 370 / 370 Output Total 200 / 200 200 / 200 Balance 1094.934 / 1094.934 170 / 170 Weight 332 lb 14.368 oz 332 lb 14.368 oz Microbiology Reports for the Last 24 Hours: Microbiology 08/30/24 22:07 Urine,Clean Catch Urine Culture - Final Multiple organisms, suggests contamination. 08/30/24 18:00 Blood Blood Culture - Preliminary 08/30/24 18:00 Blood Blood Culture - Preliminary NO GROWTH AFTER 24 HOURS Constitutional: Present moderate distress Head: Present normocephalic and atraumatic ENT: Present normal exam, normal oropharynx and mucous membranes moist Neck: Present normal inspection and full ROM Respiratory: Present able to speak in complete sentences; Absent prolonged expiratory phase, respiratory distress, wheezes or diminished air movement Cardiac: Present S1/S2, Tachycardia and radial pulses present GI: Present soft and distention; Absent tenderness or guarding Rectal (female): Present deferred (female): Present deferred Skin: Present intact; Absent cyanosis or jaundice Neuro: Present alert, awake and oriented x 3 Extremities: Present normal inspection; Absent clubbing or cyanosis Psychiatric: Present normal affect and cooperative Assessment and Plan *Assessment and plan (1) Pneumonia: Status: Acute Category: Medical Code(s): J18.9 - Pneumonia, unspecified organism (2) Nocturnal hypoxia: Status: Acute Category: Medical Code(s): G47.34 - Idiopathic sleep related nonobstructive alveolar hypoventilation Plan Ms. Tellez is a 69-year-old female never smoker, significant secondhand smoke exposure carries a diagnosis of asthma COPD overlap syndrome, prolonged hospital admission around September 2023 in [place], diagnosed with pneumonia, bleeding at the same time patient was also diagnosed with left-sided pulmonary embolism has been on anticoagulation since then presented to the clinic of worsening respiratory distress and pulmonary was called for further evaluation and management. She was only using albuterol on as-needed basis at baseline. Chest x-ray right lower lobe infiltrate. Vascular congestion. Afebrile. No evidence of leukocytosis. Hemodynamically unstable. On ceftriaxone and azithromycin. On initial examination, on 2 L saturating 96 to 98%. Weaned to room air. No significant wheezing noted on auscultation. Interval update: No acute respiratory vents overnight. Stable oxygen requirements. Plan: Continue ceftriaxone azithromycin pending sputum culture results, antibiotics can be weaned to cefdinir upon discharge to complete a total of 5-day course Continue oxygen supplementation as needed to maintain O2 saturation goal of 90 to 95% during the daytime. Continue 2 L nasal oxygen supplementation nocturnally likely from her sleep apnea. Advair 100 twice daily scheduled. Albuterol/DuoNebs 4 times daily as needed. Questionable asthma history at baseline. -Continue to follow with sleep clinic for her sleep apnea. # Thank you for involving pulmonary in this patient care will follow patient in pulmonary clinic 2 to 4 weeks post discharge.
[2024-09-01 10:31] LABS: HCV Ab Non Reactive (Non Reactive)
--- NOTE | 2024-09-01 10:46 | SW/DCPLANNER ---
I spoke w/ this patient regarding plans once medically stable for discharge. MD has ordered for patient to return home w/ home health services. Patient is agreeable to home health services. [facility] information[facility] Patient will discharge home later today.
[2024-09-01 10:51] LABS: POC Glucose,Bedside 97 (70-110)
--- NOTE | 2024-09-01 11:01 | EXP.CARD.PN ---
Subjective Subjective Date: 09/01/24 Time: 09:30 Principal diagnosis: hypotension, bradycardia Interval history: This is a 69-year-old female who is admitted to the hospital with hypotension and bradycardia. All of her blood pressure medications have been stopped and her blood pressure and heart rate have improved. This morning she denies any chest pain or pressure. She denies any shortness of breath. She states that she has chronic edema. She denies any fever, chills, nausea, vomiting, diarrhea, PND orthopnea. She states that she feels a little tired this morning after getting up to take a shower but overall she is feeling much better. She states that she is ready to be discharged home today. Exam Data for Last 24 hours Vital signs and Labs for Last 24 Hours: Temp Pulse Resp BP Pulse Ox O2 Del Method O2 Flow Rate 97.6 F 53 L 15 110/57 L 97 Room Air 1 09/01/24 08:00 09/01/24 08:00 09/01/24 08:00 09/01/24 08:00 09/01/24 08:00 09/01/24 10:39 09/01/24 08:00 Laboratory Results - last 24 hr 08/30/24 15:50: Hepatitis C Antibody Non reactive, HIV 1&2 Antibody Rapid Nonreactive 08/31/24 11:01: POC Glucose 106 08/31/24 16:29: POC Glucose 95 08/31/24 20:04: POC Glucose 112 H 09/01/24 05:33: WBC 6.5 D, RBC 4.10 L, Hgb 12.5, Hct 36.8 L, MCV 89.6, MCH 30.4, MCHC 34.0, RDW 13.4, Plt Count 238, MPV 7.8, Neut % (Auto) 57.0, Lymph % (Auto) 32.7, [place] % (Auto) 4.8, Eos % (Auto) 4.9, Baso % (Auto) 0.7, Neut # (Auto) 3.7, Lymph # (Auto) 2.1, [place] # (Auto) 0.3, Eos # (Auto) 0.3, Baso # (Auto) 0.0, Sodium 140, Potassium 3.8, Chloride 109 H, Carbon Dioxide 26, Anion Gap 8.8, BUN 18 H, Creatinine 1.20 H, Estimated Creat Clear 46, Estimated GFR 45 L, Est GFR ( Amer) 54 L, Glucose 80, Calcium 8.9, Magnesium 1.7, Total Bilirubin 0.5, AST 22, ALT 15, Alkaline Phosphatase 63, Total Protein 6.1 L, Albumin 3.3 L, Globulin 2.8, Albumin/Globulin Ratio 1.2, Triglycerides 87, Cholesterol 121 L, LDL Cholesterol Direct 59.11 L, VLDL Cholesterol 17, HDL Cholesterol 38 L, Cholesterol/HDL Ratio 3.2 09/01/24 05:55: POC Glucose 87 09/01/24 10:42: POC Glucose 97 I & O for Last 24 hours: Intake & Output 08/29/24 08/30/24 08/31/24 09/01/24 23:59 23:59 23:59 23:59 Intake Total 1294.934 / 2326.670 6531 / 1623 670 / 670 Output Total 200 / 200 200 / 200 0 / 0 Balance 1094.934 / 1225.389 9301 / 1423 670 / 670 Weight 332 lb 14.368 oz 332 lb 14.368 oz 332 lb 14.368 oz Microbiology Reports for the Last 24 Hours: Microbiology 08/30/24 18:00 Blood Blood Culture - Preliminary 08/30/24 22:07 Urine,Clean Catch Urine Culture - Final Multiple organisms, suggests contamination. 08/30/24 18:00 Blood Blood Culture - Preliminary NO GROWTH AFTER 24 HOURS Narrative: Telemetry telemetry strip shows heart rate 60 bpm. Constitutional Constitutional: no acute distress and morbidly obese *Routine HEENT Exam Head: Present normocephalic and atraumatic ENT: Present mucous membranes moist *Routine Neck Exam Neck: Present supple, full ROM and normal carotid upstroke; Absent JVD, carotid bruit or lymphadenopathy *Routine Respiratory Exam Respiratory: Present CTA bilaterally, normal respiratory effort, able to speak in complete sentences and symmetric chest movement *Routine Cardiovascular Exam Cardiovascular: Present RRR, Normal S1 and Normal S2; Absent murmur or gallop *Routine Abdominal Exam Abdominal: Present soft and normoactive bowel sounds; Absent tenderness, distended or organomegaly *Routine Extremities Exam Extremities: Present edema, full ROM, pulses intact and normal capillary refill; Absent cyanosis or clubbing *Routine Skin Exam Skin: Present intact and warm; Absent erythema *Routine Neurological Exam Neurological: Present alert, oriented X3 and CN II-XII intact; Absent sensory deficit or motor deficit Routine Psychiatric Exam Psychiatric: Present normal affect Progress Note: A&P Assessment and plan (1) Pneumonia: Status: Acute (2) Nocturnal hypoxia: Status: Acute (3) Hypotension: Status: Acute (4) Bradycardia: Status: Acute (5) Dehydration: Status: Acute (6) Coronary-myocardial bridge: Status: Acute (7) Paroxysmal atrial fibrillation: Status: Acute (8) Presence of Watchman left atrial appendage closure device: Status: Acute (9) KEREN (acute kidney injury): Status: Acute (10) Diabetes: Status: Acute (11) COPD (chronic obstructive pulmonary disease): Status: Acute Assessment and Plan Assessment and Plan for All Diagnoses:: Plan: 1. The patient presented to the emergency department with complaints of hypotension and bradycardia. All of her blood pressure medications have been stopped. Her blood pressure and heart rate have improved. 2. The patient was having intermittent chest pain. Her isosorbide had to be stopped due to her hypotension and she was started on Ranexa yesterday. She denies any chest pain or pressure today. 3. Echocardiogram shows a normal ejection fraction with mild MR.. 4. The patient reports having a history of paroxysmal atrial fibrillation and is status post watchman's device placement. She remains in sinus rhythm at this time. Will place a 30-day event monitor at discharge to evaluate for the presence of her paroxysmal atrial fibrillation and to make sure she is not having any more episodes of bradycardia. 5. Her blood pressure has improved today. 6. Her LDL goal is less than 100. Her LDL is 59. 7. The patient does have a UTI. She is getting IV antibiotics. Will defer to the hospitalist. 8. The patient also has a right lower lobe pneumonia. Will defer this to the hospitalist and pulmonology. 9. The patient did have an KEREN on admission. She has been getting IV fluids. Her renal function has improved today. 10. No further recommendations at this time from a cardiac standpoint. The patient can be discharged from a cardiac standpoint once she is medically cleared. She will need to be discharged with a 30-day event monitor in place due to her paroxysmal atrial fibrillation and bradycardia. She will need to follow-up in 1 to 2 weeks on an outpatient basis with her primary zookeeper at . Thank you for the opportunity to help participate in the care of this patient. All recommendations and orders are per Dr. Tello.
--- NOTE | 2024-09-03 10:35 | SW/DCPLANNER ---
Called Patient x2. Left message each time with call back number. Will Chandler
== END 2024-09-01 14:02 | disposition home health service (06) ==
LOC: ER 17:23 → 2ND 18:37
PROVIDERS: Internal Medicine Adolescent Medicine; Nurse Practitioner Family; Admitting Provider Student in an Organized Health Care Education/Training Program; Emergency Provider Emergency Medicine; Visit Provider Student in an Organized Health Care Education/Training Program
DX: J18.9 Pneumonia, unspecified organism (principal); N39.0 Urinary tract infection, site not specified; I48.0 Paroxysmal atrial fibrillation; G47.34 Idiopathic sleep related nonobstructive alveolar hypoventilation; J44.9 Chronic obstructive pulmonary disease, unspecified; I95.2 Hypotension due to drugs; E86.0 Dehydration; Q24.5 Malformation of coronary vessels; Z95.818 Presence of other cardiac implants and grafts; Z79.4 Long term (current) use of insulin; N17.9 Acute kidney failure, unspecified; N18.30 Chronic kidney disease, stage 3 unspecified; Z79.85 Long-term (current) use of injectable non-insulin antidiabetic drugs; E11.22 Type 2 diabetes mellitus with diabetic chronic kidney disease; I12.9 Hypertensive chronic kidney disease with stage 1 through stage 4 chronic kidney disease, or unspecified chronic kidney disease; E03.9 Hypothyroidism, unspecified
CPT/HCPCS: 36415; 71045; 80053; 80061; 81001; 82803; 82962; 83036; 83605; 83690; 83735; 83880; 84443; 84484; 85025; 85610; 85730; 86803; 87040; 87086; 87389; 93005; 93225; 93227; 93306; 94640; 99285; G0378; J0696; J1611; J1650; J7030; J7120; J7620